=== PATIENT | male | born 1935 | race Caucasian/White ===

== ENCOUNTER 2016-06-11 10:13 | Emergency (ER) | payer MEDICARE ==
[~2016-06-11] VITALS: Ht 172.7 cm; Wt 92.0 kg
[~2016-06-11 10:13] MED LIST: DIOV80TA4 PO; DOXA1 PO; OMEP20TA PO; Z.0.CPM
[2016-06-11 10:16] VITALS: BP 124/67; PULSE 84; RESP 20; TEMP 98; O2SAT 96
[2016-06-11 10:33] VITALS: BP 104/65
[2016-06-11 10:35] VITALS: BP 105/64; PULSE 72; RESP 16; O2SAT 98
[2016-06-11] MEDS ORDERED: OMEP20TA PO (10:44)
[2016-06-11] MEDS ORDERED: METO25TA3 PO (10:44)
[2016-06-11] MEDS ORDERED: WARF-20 PO (10:44)
[2016-06-11] MEDS ORDERED: METH2.5T PO (10:44)
[2016-06-11] MEDS ORDERED: FOLI5CAP PO (10:44)
[2016-06-11] MEDS ORDERED: DOXA1TAB43 PO (10:44)
--- NOTE | 2016-06-11 10:50 | PD ---
HPI Chief Complaint: Abdominal Pain Time Seen by Provider: 10:33 Travel History International Travel<30 days: No Contact w/Intl Traveler<30days: No Traveled to known affect area: No History of Present Illness HPI This is an 80-year-old male who presents to the emergency department with a history of colon cancer status post colon resection in 2003 who presents the emergency department with left lower quadrant pain, moderate severity starting yesterday, radiating into the left testicle, constant, worse with movement, improved with rest. He denies any dysuria, hematuria or penile discharge. He' s not had nausea, vomiting, fevers or chills. He's never had pain like this before. PFSH Past Medical History Arthritis: Yes (RA) Atrial Fibrillation: Yes Cancer: Yes (COLON 2003 - TREATED WITH CHEMO & SURGICAL INTERVENTION ) Cardiovascular Problems: Yes (HX ATRIAL FIB) Diabetes: No Endocrine: No Gastrointestinal Disorders: Yes (BARRETTS ESOPHAGUS, COLON CANCER 2003, ACID REFLUX ) Genitourinary: Yes (BPH; TURP HX; INCOMPLETE BLADDER EMPTYING; URINARY INCONTINENCE) Hepatitis: No Hiatal Hernia: No Hypertension: Yes Immune Disorder: No Medical other: Yes (ARTHRITIS; BRUISES EASILY ) Musculoskeletal: Yes (LEFT KNEE REPLACE;RIGHT KNEE ARTHRITIS) Neurologic: Yes (NEUROPATHY BOTH HANDS POST CHEMO) Psychiatric: No Reproductive: No Respiratory: Yes (SLEEP APNEA USES CPAP @ HOME) Thyroid Disease: No Past Surgical History Abdominal Surgery: Yes (COLON RESECTION 2003 ) AICD: No Body Medical Devices: LEFT KNEE Cardiac Surgery: No Ear Surgery: Yes (MASTOID SX X 2 ) Endocrine Surgery: No Eye Surgery: No Genitourinary Surgery: Yes (TURP ) Joint Replacement: Yes (TOTAL LEFT KNEE) Oral Surgery: Yes (TONSILLECTOMY) Pacemaker: No Thoracic Surgery: No Other Surgery: Yes Social History Alcohol Use: Yes (SELDOM) Tobacco Use: No Substance Use: No Allergies-Medications (Allergen,Severity, Reaction): Coded Allergies: Aspirin (Verified Allergy, Severe, 06/11/16) Lomotil (Verified Adverse Reaction, Unknown, SEVERE DIARRHEA, 06/11/16) Uncoded Allergies: ANTI INFLAMMATORIES (Allergy, Unknown, 10/13/14) Reported Meds & Prescriptions Reported Meds & Active Scripts Active Reported Folic Acid Unknown Strength Cap Unknown Dose PO DAILY Warfarin 4 Mg Tab 8 Mg PO DAILY Metoprolol Tartrate 25 Mg Tab 12.5 Mg PO BID Methotrexate 2.5 Mg Tab 10 Mg PO Q7D Omeprazole 20 Mg Tab 20 Mg PO DAILY Doxazosin (Doxazosin Mesylate) 8 Mg Tab 8 Mg PO DAILY Review of Systems Except as stated in HPI: all other systems reviewed are Neg Physical Exam Narrative GENERAL:Well appearing, no acute distress SKIN: Warm and dry. HEAD: Atraumatic. Normocephalic. EYES: Pupils equal and round. No injection or drainage. ENT: Moist mucous membranes NECK: Trachea midline. CARDIOVASCULAR: Regular rate and rhythm. No murmur appreciated. RESPIRATORY: Clear to auscultation. Breath sounds equal bilaterally. GASTROINTESTINAL: Abdomen soft, tender to palpation in the left lower quadrant with no rebound or guarding. : Tender to palpation along the posterior aspect of the left testicle MUSCULOSKELETAL: No obvious deformities. NEUROLOGICAL: Awake and alert. No obvious cranial nerve deficits. Moving all extremities. PSYCHIATRIC: Appropriate mood and affect; insight and judgment normal. Data Data Last Documented VS Vital Signs Date Time Temp Pulse Resp B/P Pulse Ox O2 Delivery O2 Flow Rate FiO2 06/11/16 10:33 104/65 06/11/16 10:16 98.0 84 20 96 Room Air Orders Complete Blood Count With Diff (06/11/16 10:46) Comprehensive Metabolic Panel (06/11/16 10:46) Urinalysis - C+S If Indicated (06/11/16 10:46) Us Testicles W Doppler (06/11/16 ) Ct Abd/Pel W Iv Contrast(Rout) (06/11/16 ) Prothrombin Time / Inr (Pt) (06/11/16 10:56) Act Partial Throm Time (Ptt) (06/11/16 10:56) Urine Culture (06/11/16 12:41) Iohexol 350 Inj (Omnipaque 350 Inj) (06/11/16 13:21) Ciprofloxacin 400 Mg Premix (Cipro 400 M (06/11/16 14:00) Labs Laboratory Tests Test 06/11/16 06/11/16 10:56 12:41 White Blood Count 13.2 TH/MM3 Red Blood Count 4.12 MIL/MM3 Hemoglobin 11.2 GM/DL Hematocrit 34.6 % Mean Corpuscular Volume 83.8 FL Mean Corpuscular Hemoglobin 27.0 PG Mean Corpuscular Hemoglobin 32.3 % Concent Red Cell Distribution Width 16.9 % Platelet Count 202 TH/MM3 Mean Platelet Volume 8.9 FL Neutrophils (%) (Auto) 87.2 % Lymphocytes (%) (Auto) 6.1 % Monocytes (%) (Auto) 5.8 % Eosinophils (%) (Auto) 0.5 % Basophils (%) (Auto) 0.4 % Neutrophils # (Auto) 11.5 TH/MM3 Lymphocytes # (Auto) 0.8 TH/MM3 Monocytes # (Auto) 0.8 TH/MM3 Eosinophils # (Auto) 0.1 TH/MM3 Basophils # (Auto) 0.1 TH/MM3 CBC Comment DIFF FINAL Differential Comment Prothrombin Time 23.6 SEC Prothromb Time International 2.1 RATIO Ratio Activated Partial 40.7 SEC Thromboplast Time Sodium Level 138 MEQ/L Potassium Level 3.7 MEQ/L Chloride Level 103 MEQ/L Carbon Dioxide Level 27.9 MEQ/L Anion Gap 7 MEQ/L Blood Urea Nitrogen 11 MG/DL Creatinine 0.69 MG/DL Estimat Glomerular Filtration 110 ML/MIN Rate Random Glucose 118 MG/DL Calcium Level 7.8 MG/DL Total Bilirubin 1.3 MG/DL Aspartate Amino Transf 15 U/L (AST/SGOT) Alanine Aminotransferase 22 U/L (ALT/SGPT) Alkaline Phosphatase 61 U/L Total Protein 6.4 GM/DL Albumin 3.1 GM/DL Urine Color YELLOW Urine Turbidity CLOUDY Urine pH 6.0 Urine Specific [place] 1.019 Urine Protein 100 mg/dL Urine Glucose (UA) NEG mg/dL Urine Ketones NEG mg/dL Urine Occult Blood LARGE Urine Nitrite POS Urine Bilirubin NEG Urine Urobilinogen LESS THAN 2.0 MG/DL Urine Leukocyte Esterase LARGE Urine RBC /hpf Urine WBC /hpf Urine WBC Clumps RARE Urine Squamous Epithelial 1 /hpf Cells Urine Bacteria MANY /hpf Urine Mucus FEW /lpf Microscopic Urinalysis Comment CULTURE INDICATED MDM Medical Decision Making Medical Screen Exam Complete: Yes Emergency Medical Condition: Yes Interpretation(s) afebrile, no tachycardia, normotensive leukocytosis with left shift electrolytes within normal limits urinalysis: large amount of red blood cells and white blood cells Last 24 hours Impressions Scrotum Ultrasound 06/11/16 0000 Signed Impressions: Service Date/Time: Saturday, June 11, 2016 11:36 - CONCLUSION: 1. 5 x 3 x 2 cm heterogeneous extratesticular Mass in the left side of the scrotum. It may extend off of the body/tail of the epididymis. No inguinal hernia is seen on recent CT. Infection with masslike inflammatory change is also in the differential diagnosis. 2. Testicles within normal limits. Doc Marcano MD Abdomen/Pelvis CT 06/11/16 0000 Signed Impressions: Service Date/Time: Monday, June 11, 2016 13:02 - CONCLUSION: 1. Heterogeneous density/likely inflammatory change at the left side of the scrotum. No communication with the inguinal canal. No evidence of inguinal hernia. 2. Large midline anterior abdominal wall hernia containing a portion of the transverse colon. No evidence of bowel dilatation. 3. Moderate sized hiatal hernia. 4. Periportal edema in the liver. Doc Marcano MD Differential Diagnosis Urinary tract infection, epididymitis, epididymal orchitis, kidney stone, diverticulitis Narrative Course This is an 80-year-old male who presents to the emergency department with left lower quadrant and left groin pain. He is placed in a monitor and an IV was established. Labs are obtained which demonstrated a mild leukocytosis with left shift as well as a urinary tract infection. Ultrasound was obtained which demonstrates a 3 x 5 cm mass like area in the scrotum adjacent to the left testicle near the epididymis. CT abdomen and pelvis demonstrates an abdominal wall hernia. I reexamined the patient and I could palpate his hernia was completely nontender and I don't think it's the etiology of his symptoms. I think his symptoms are related to acute epididymitis and inflammatory changes. Patient was given a dose of IV ciprofloxacin and was instructed to follow-up with the urologist as soon as possible. Diagnosis Primary Impression: Epididymitis with abscess Patient Instructions: General Instructions Additional Instructions: If you develop severe or worsening abdominal pain, fever>100.4, persistent vomiting or inability to eat or drink return to the emergency department immediately. Follow-up with the urologist as soon as possible. Med/Other Pt SpecificInfo: Prescription(s) given Scripts Ciprofloxacin 500 Mg Uos218 Mg PO BID 10 Days Prov:Caryn Anderson MD 06/11/16 Disposition: 01 DISCHARGE HOME Condition: Stable Caryn Anderson MD Jun 11, 2016 10:50
[2016-06-11 11:24] LABS: AUTOMATED NEUTROPHIL # 11.5 TH/MM3 (1.8-7.7); BASOPHIL # 0.1 TH/MM3 (0-0.2); BASOPHIL % 0.4 % (0.0-2.0); EOSINOPHIL # 0.1 TH/MM3 (0-0.4); EOSINOPHIL % 0.5 % (0.0-4.0); HEMATOCRIT 34.6 % (39.0-51.0); HEMO FLAGS DIFF FINAL; LYMPH % 6.1 % (9.0-44.0); LYMPHOCYTE # 0.8 TH/MM3 (1.0-4.8); MEAN CELL VOLUME 83.8 FL (80.0-100.0); MEAN CORPUSCULAR HGB CONC 32.3 % (32.0-36.0); MONO % 5.8 % (0.0-8.0); NEUT % 87.2 % (16.0-70.0); PLATELET COUNT 202 TH/MM3 (150-450); RED BLOOD COUNT 4.12 MIL/MM3 (4.50-5.90); RED CELL DISTRIBUTION WIDTH 16.9 % (11.6-17.2); WHITE BLOOD COUNT 13.2 TH/MM3 (4.0-11.0)
[2016-06-11 11:30] VITALS: BP 109/73; PULSE 76; RESP 18; O2SAT 97
[2016-06-11 11:36] LABS: APTT (PATIENT) 40.7 SEC (24.3-30.1); INTERNATIONAL NORMALIZED RATIO 2.1 RATIO; PROTHROMBIN TIME - PATIENT 23.6 SEC (9.8-11.6)
[2016-06-11 11:38] LABS: ANION GAP 7 MEQ/L (5-15); AST (GOT) 15 U/L (15-37); BICARBONATE 27.9 MEQ/L (21.0-32.0); BLOOD UREA NITROGEN 11 MG/DL (7-18); CHLORIDE 103 MEQ/L (98-107); GLOMERULAR FILTRATION RATE 110 ML/MIN (>89); POTASSIUM 3.7 MEQ/L (3.5-5.1); SODIUM (NA) 138 MEQ/L (136-145)
[2016-06-11 11:41] LABS: ALKALINE PHOSPHATASE 61 U/L (45-117); ALT (GPT) 22 U/L (12-78); TOTAL BILIRUBIN ADULT 1.3 MG/DL (0.2-1.0)
[2016-06-11 12:30] VITALS: BP 110/78; PULSE 76; RESP 16; O2SAT 97
[2016-06-11 13:07] LABS: BACTERIA, URINE MANY /hpf; BLOOD, URINE LARGE (NEG); COMMENT (UR) CULTURE INDICATED; CULTURE IF INDICATED CULTURE INDICATED; GLUCOSE,URINE NEG (NEG); KETONE, URINE NEG (NEG); MUCUS URINE FEW /lpf (OCC); SQUAMOUS EPITHELIAL CELL URINE 1 /hpf (0-5); URINE COLOR YELLOW (YELLW/STRAW)
[2016-06-11 13:09] LABS: NITRITE,URINE POS (NEG)
[2016-06-11] MEDS ORDERED: IOHEXOL 350 MG/ML 10 ML VIAL (for RAD DIAG) IV ONE (13:21)
--- NOTE | 2016-06-11 13:28 | RADRPT ---
EXAM DATE/TIME: 06/11/2016 11:36 [facility] COMPARISON: CT ABDOMEN & PELVIS W CONTRAST, June 11, 2016, 13:02. INDICATIONS : Left testicular pain. MEDICAL HISTORY : Carcinoma, colon. Rheumatoid arthritis. BPH. Melgar's esophagus. gerd. htn. sleep apnea. afib. neuro daniel, hands. SURGICAL HISTORY : Tonsillectomy. Total knee replacement, left.TURP. Mastoid surgery. Chemotherapy. ENCOUNTER: Initial ACUITY: 2 days PAIN SCORE: 4/10 LOCATION: Bilateral scrotum. MEASUREMENTS: RIGHT TESTICLE: 2.3 x 2.7 x 1.6cm LEFT TESTICLE: 2.3 x 2.5 x 1.6cm FINDINGS: RIGHT TESTICLE: Testicle is homogeneous and within normal limits. Moderate-sized hydrocele. Epididymis is mildly hete rogeneous with several small cysts seen in the epididymal head. LEFT TESTICLE: Testicle is homogeneous and within normal limits. Moderate-sized hydrocele. 4.9 x 2.9 x 2.4 cm hetero geneous mixed echogenicity hypervascular extratesticular mass identified. The area is hypervascular. Several small cysts are seen in the epididymis. SCROTUM: Within normal limits. CONCLUSION: 1. 5 x 3 x 2 cm heterogeneous extratesticular Mass in the left side of the scrotum. It may extend off of the body/tail of the epididymis. No inguinal hernia is seen on recent CT. Infection with masslike inflammatory change is also in the differential diagnosis. 2. Testicles within normal limits. Doc Marcano MD on June 11, 2016 at 13:19 Board Certified Radiologist. This report was verified electronically.
[2016-06-11] MEDS ORDERED: CIPROFLOXACIN 400 MG PREMIX 200 ML IV ONE (14:00)
--- NOTE | 2016-06-11 14:24 | RADRPT ---
EXAM DATE/TIME: 06/11/2016 13:02 [facility] COMPARISON: No previous studies available for comparison. INDICATIONS : Lower left abdomen pain. IV CONTRAST: 80 cc Omnipaque 350 (iohexol) IV ORAL CONTRAST: No oral contrast ingested. RADIATION DOSE: 16.02 CTDIvol (mGy) MEDICAL HISTORY : Cardiovascular disease. Gastroesophageal reflux disease. Carcinoma, colon. SURGICAL HISTORY : Colon resection. ENCOUNTER: Initial ACUITY: 1 day PAIN SCALE: 5/10 LOCATION: Left Abdomen TECHNIQUE: Volumetric scanning of the abdomen and pelvis was performed. Using automated exposure control and ad justment of the mA and/or kV according to patient size, radiation dose was kept as low as reasonably achievable to obtain optimal diagnostic quality images. FINDINGS: LOWER LUNGS: Coronary artery calcification. Mild bilateral lower lobe atelectasis. Moderate-sized hiatal hernia. LIVER: Periportal edema noted. Mild ill-defined fluid density about the sandra hepatis.Homogeneous density wi thout lesion. There is no dilation of the biliary tree. No calcified gallstones. SPLEEN: Normal size without lesion. PANCREAS: Within normal limits. KIDNEYS: 2 mm nonobstructing calculus in the anterior midpole of the right kidney. 3 mm nonobstructing calculu s in the posterior midpole of the left kidney. Bilateral fluid density mass is indicating cysts with the largest extending off of the right lower pole measuring 6.5 cm. No evidence of hydronephrosis. ADRENAL GLANDS: Within normal limits. VASCULAR: Aortic diameter are within normal limits. BOWEL/MESENTERY: Prominent hiatal hernia. No evidence of bowel dilatation. Appendix not identified. ABDOMINAL WALL: There is a large midline anterior abdominal wall hernia containing a segment of the transverse colon. The hernia measures 15.8 cm in medial to lateral dimension. The neck measures 4.7 cm. Mild hazy/stra nding opacity in the hernia. No associated bowel dilatation or bowel wall thickening. RETROPERITONEUM: There is no lymphadenopathy. BLADDER: No wall thickening or mass. REPRODUCTIVE: Within normal limits. INGUINAL: No evidence of inguinal hernia. There is evidence of edema/heterogeneous density in the inferior left side of the scrotum. MUSCULOSKELETAL: Prominent degenerative findings of the lumbar spine. CONCLUSION: 1. Heterogeneous density/likely inflammatory change at the left side of the scrotum. No communication with the inguinal canal. No evidence of inguinal hernia. 2. Large midline anterior abdominal wall hernia containing a portion of the transverse colon. No evid ence of bowel dilatation. 3. Moderate sized hiatal hernia. 4. Periportal edema in the liver. Doc Marcano MD on June 11, 2016 at 14:14 Board Certified Radiologist. This report was verified electronically.
[2016-06-11 14:30] VITALS: BP 122/79; PULSE 88; RESP 16; O2SAT 96
[2016-06-11] MEDS ORDERED: CIPR500T2 PO (14:41)
== END 2016-06-11 15:00 | disposition home or self-care (01) ==
LOC: NEPC 10:13
DX: N45.1 Epididymitis (principal); N49.2 Inflammatory disorders of scrotum; N39.0 Urinary tract infection, site not specified; B96.20 Unspecified Escherichia coli [E. coli] as the cause of diseases classified elsewhere; K43.9 Ventral hernia without obstruction or gangrene; I10 Essential (primary) hypertension; G47.30 Sleep apnea, unspecified; Z87.39 Personal history of other diseases of the musculoskeletal system and connective tissue; Z86.79 Personal history of other diseases of the circulatory system; Z85.038 Personal history of other malignant neoplasm of large intestine; Z87.19 Personal history of other diseases of the digestive system; Z87.448 Personal history of other diseases of urinary system; Z86.69 Personal history of other diseases of the nervous system and sense organs
CPT/HCPCS: 74177; 76870; 80053; 81001; 85025; 85610; 85730; 87077; 87086; 87186; 93975; 96365; 99284; J0744; Q9967

== ENCOUNTER 2017-05-28 06:38 | Inpatient (IN) | payer MEDICARE ==
[2017-05-28] VITALS (19 sets, daily range): BP systolic 88–130; BP diastolic 53–78; PULSE 80–116; RESP 16–24; TEMP 97.5–98.6; O2SAT 94–97
[~2017-05-28] VITALS: Ht 172.7 cm; Wt 98.3 kg
[~2017-05-28 06:38] MED LIST changes: +CIPR500T2 PO; -DIOV80TA4 PO; -DOXA1 PO; +DOXA1TAB43 PO; +FOLI5CAP PO; +METH2.5T PO; +METO25TA3 PO; -OMEP20TA PO; +OMEP20TA93 PO; +WARF-20 PO; -Z.0.CPM
[2017-05-28] MEDS ORDERED: SODIUM CHLOR 0.9% 1000 ML INJ 1,000 ML IV SCH ×2 (07:04→10:00)
--- NOTE | 2017-05-28 07:12 | PD ---
HPI Chief Complaint: General Weakness Time Seen by Provider: 06:57 Travel History International Travel<30 days: No Contact w/Intl Traveler<30days: No Traveled to known affect area: No History of Present Illness HPI The patient is a 81-year-old male who presents to the emergency department for multiple complaints. The patient states he developed symptoms on of dizziness which she describes as the room spinning, intermittent headaches, and nausea without vomiting. He also complains of epigastric abdominal discomfort which she attributes to his reflux. He does have a history of GERD, was on Prilosec a one time, but currently takes no medications for reflux. He also complains of body aches, low back pain, but denies any fever. The patient denies any chest pain, does complain of mild shortness of breath. He did receive an influenza vaccination this year. He does have remote history of colon cancer with partial colectomy. Last bowel movement was yesterday. He does have a history of lower abdominal hernia but denies any history of bowel obstruction. He recently had his left testicle removed 3 weeks ago and is awaiting results for possible cancer. He did undergo chemotherapy for colon cancer but denies any radiation therapy. The patient's symptoms are moderate, there are no current alleviating or exacerbating factors. PFSH Past Medical History Arthritis: Yes (RA) Atrial Fibrillation: Yes Cancer: Yes (COLON 2004 - TREATED WITH CHEMO & SURGICAL INTERVENTION ) Cardiovascular Problems: Yes (HX ATRIAL FIB) Diabetes: No Endocrine: No Gastrointestinal Disorders: Yes (BARRETTS ESOPHAGUS, COLON CANCER 2003, ACID REFLUX ) Genitourinary: Yes (BPH; TURP HX; INCOMPLETE BLADDER EMPTYING; URINARY INCONTINENCE) Hepatitis: No Hiatal Hernia: No Hypertension: Yes Immune Disorder: No Medical other: Yes (ARTHRITIS; BRUISES EASILY ) Musculoskeletal: Yes (LEFT KNEE REPLACE;RIGHT KNEE ARTHRITIS) Neurologic: Yes (NEUROPATHY BOTH HANDS POST CHEMO) Psychiatric: No Reproductive: No Respiratory: Yes (SLEEP APNEA USES CPAP @ HOME) Thyroid Disease: No Tetanus Vaccination: < 5 Years Influenza Vaccination: No Past Surgical History Surgical History: No Previous Surgery Abdominal Surgery: Yes (COLON RESECTION 2003 ) AICD: No Body Medical Devices: LEFT KNEE Cardiac Surgery: No Ear Surgery: Yes (MASTOID SX X 2 ) Endocrine Surgery: No Eye Surgery: No Genitourinary Surgery: Yes (TURP ) Joint Replacement: Yes (TOTAL LEFT KNEE) Oral Surgery: Yes (TONSILLECTOMY) Pacemaker: No Thoracic Surgery: No Other Surgery: Yes Social History Alcohol Use: Yes (SELDOM) Tobacco Use: No Substance Use: No Allergies-Medications (Allergen,Severity, Reaction): Coded Allergies: aspirin (Unverified Allergy, Severe, 05/28/17) atropine (Unverified Adverse Reaction, Unknown, SEVERE DIARRHEA, 05/28/17) diphenoxylate (Unverified Adverse Reaction, Unknown, SEVERE DIARRHEA, 05/28) Uncoded Allergies: ANTI INFLAMMATORIES (Allergy, Unknown, 10/13/14) Reported Meds & Prescriptions Reported Meds & Active Scripts Active Reported Folic Acid 1 Mg Tablet 1 Tab PO DAILY Warfarin 4 Mg Tab 8 Mg PO DAILY Metoprolol Tartrate 25 Mg Tab 12.5 Mg PO BID Methotrexate 2.5 Mg Tab 10 Mg PO Q7D Doxazosin (Doxazosin Mesylate) 8 Mg Tab 8 Mg PO DAILY Review of Systems Except as stated in HPI: all other systems reviewed are Neg General / Constitutional: No: Fever HENT: Positive: Headaches, Vertigo, No: Lightheadedness Cardiovascular: No: Chest Pain or Discomfort Respiratory: Positive: Shortness of Breath, No: Cough Gastrointestinal: Positive: Nausea, Abdominal Pain, Indigestion, No: Vomiting, Diarrhea, Constipation Genitourinary: No: Dysuria Musculoskeletal: Positive: Myalgias Neurologic: Positive: Weakness, Dizziness, Headache Physical Exam Narrative GENERAL: Awake, alert, pleasant 81-year-old male who appears his stated age and is in no acute respiratory distress. SKIN: Focused skin assessment warm/dry. HEAD: Atraumatic. Normocephalic. EYES: Pupils equal and round. No scleral icterus. No injection or drainage. ENT: No nasal bleeding or discharge. Mucous membranes pink and moist. Poor dentition. NECK: Trachea midline. No JVD. CARDIOVASCULAR: Irregularly irregular. RESPIRATORY: No accessory muscle use. Clear to auscultation. Breath sounds equal bilaterally. GASTROINTESTINAL: Abdomen mild epigastric tenderness. Palpable hernia inferior to the umbilicus left lower quadrant, unable to reduce. MUSCULOSKELETAL: No obvious deformities. No clubbing. No cyanosis. No edema. NEUROLOGICAL: Awake and alert. No obvious cranial nerve deficits. Motor grossly within normal limits. Normal speech. PSYCHIATRIC: Appropriate mood and affect; insight and judgment normal. Data Data Last Documented VS Vital Signs Date Time Temp Pulse Resp B/P (MAP) Pulse Ox O2 Delivery O2 Flow Rate FiO2 05/28/17 07:20 104 20 130/73 (92) 96 Room Air 05/28/17 06:42 97.5 Orders Orders Complete Blood Count With Diff (05/28/17 07:04) Comprehensive Metabolic Panel (05/28/17 07:04) Lipase (05/28/17 07:04) Lactic Acid (05/28/17 07:04) Prothrombin Time / Inr (Pt) (05/28/17 07:04) Act Partial Throm Time (Ptt) (05/28/17 07:04) Urinalysis - C+S If Indicated (05/28/17 07:04) Ct Abd/Pel W/O Iv Contrast (05/28/17 07:04) Iv Access Insert/Monitor (05/28/17 07:04) Ecg Monitoring (05/28/17 07:04) Oximetry (05/28/17 07:04) Morphine Inj (Morphine Inj) (05/28/17 07:15) Ondansetron Inj (Zofran Inj) (05/28/17 07:15) Sodium Chlor 0.9% 1000 Ml Inj (Ns 1000 M (05/28/17 07:04) Sodium Chloride 0.9% Flush (Ns Flush) (05/28/17 07:15) Electrocardiogram (05/28/17 07:04) Chest, Single Ap (05/28/17 07:04) Famotidine Inj (Pepcid Inj) (05/28/17 07:15) Al-Mag Hy-Si 40-40-4 Mg/Ml Liq (Mag-Al P (05/28/17 07:15) Lidocaine 2% Viscous (Xylocaine 2% Visco (05/28/17 07:15) Ct Brain W/O Iv Contrast(Rout) (05/28/17 ) Electrocardiogram (05/28/17 ) Troponin I (05/28/17 07:12) Creatine Kinase (Cpk) (05/28/17 07:12) Sodium Chlorid 0.9% 500 Ml Inj (Ns 500 M (05/28/17 07:30) Piperacil-Tazo 4.5 Gm Premix (Zosyn 4.5 (05/28/17 08:00) Type And Screen (05/28/17 07:55) Yuval-Gastric Tube Insert/Mon (05/28/17 07:59) NPO (05/28/17 07:59) Insert Ng Tube (05/28/17 08:05) Blood Product Administration (05/28/17 08:20) Phytonadione Inj (Vitamin K Inj) (05/28/17 08:30) Consult Colorectal Surgery (05/28/17 ) (Hub Use Only)Inp Phy Cons/Ref (05/28/17 ) Prothrombin Time / Inr (Pt) (05/28/17 08:37) Admit Order (Ed Use Only) (05/28/17 08:39) Labs Laboratory Tests Test 05/28/17 07:15 05/28/17 07:30 White Blood Count 17.7 TH/MM3 Red Blood Count 4.95 MIL/MM3 Hemoglobin 15.3 GM/DL Hematocrit 44.8 % Mean Corpuscular Volume 90.4 FL Mean Corpuscular Hemoglobin 30.9 PG Mean Corpuscular Hemoglobin Concent 34.1 % Red Cell Distribution Width 14.7 % Platelet Count 364 TH/MM3 Mean Platelet Volume 8.3 FL Neutrophils (%) (Auto) 92.6 % Lymphocytes (%) (Auto) 3.4 % Monocytes (%) (Auto) 3.8 % Eosinophils (%) (Auto) 0.0 % Basophils (%) (Auto) 0.2 % Neutrophils # (Auto) 16.4 TH/MM3 Lymphocytes # (Auto) 0.6 TH/MM3 Monocytes # (Auto) 0.7 TH/MM3 Eosinophils # (Auto) 0.0 TH/MM3 Basophils # (Auto) 0.0 TH/MM3 CBC Comment DIFF FINAL Differential Comment Blood Urea Nitrogen 40 MG/DL Creatinine 1.26 MG/DL Random Glucose 155 MG/DL Total Protein 7.8 GM/DL Albumin 3.5 GM/DL Calcium Level 8.7 MG/DL Alkaline Phosphatase 73 U/L Aspartate Amino Transf (AST/SGOT) 23 U/L Alanine Aminotransferase (ALT/SGPT) 20 U/L Total Bilirubin 1.2 MG/DL Sodium Level 131 MEQ/L Potassium Level 4.1 MEQ/L Chloride Level 94 MEQ/L Carbon Dioxide Level 26.4 MEQ/L Anion Gap 11 MEQ/L Estimat Glomerular Filtration Rate 55 ML/MIN Lactic Acid Level 2.8 mmol/L Total Creatine Kinase 94 U/L Troponin I LESS THAN 0.02 NG/ML Lipase 222 U/L Prothrombin Time 54.7 SEC Prothromb Time International Ratio 5.5 RATIO Activated Partial Thromboplast Time 45.7 SEC MDM Medical Decision Making Medical Screen Exam Complete: Yes Emergency Medical Condition: Yes Medical Record Reviewed: Yes Interpretation(s) Last Impressions Chest X-Ray 05/28/17 0704 Signed Impressions: Service Date/Time: Sunday, May 28, 2017 07:23 - CONCLUSION: No acute disease. The enlargement of cardiac silhouette may be secondary to portable technique. Tsering Poole MD Abdomen/Pelvis CT 05/28/17 0704 Signed Impressions: Service Date/Time: Sunday, May 28, 2017 07:25 - CONCLUSION: There is a small bowel obstruction secondary to an area of small bowel herniation through an anterior midline abdominal wall defect. Portions of the herniated small bowel are decompressed with abnormal brain of the adjacent fat and appearance of volvulus. Findings are highly concerning for strangulation. There is severe dilation of the stomach with fluid identified within the esophagus and abnormalities identified within the bilateral lower lobes concerning for aspiration.. Tsering Poole MD Head CT 05/28/17 0000 Signed Impressions: Service Date/Time: Sunday, May 28, 2017 07:23 - CONCLUSION: Normal examination for a patient of this age. Tsering Poole MD Laboratory Tests Test 05/28/17 07:15 05/28/17 07:30 White Blood Count 17.7 TH/MM3 Red Blood Count 4.95 MIL/MM3 Hemoglobin 15.3 GM/DL Hematocrit 44.8 % Mean Corpuscular Volume 90.4 FL Mean Corpuscular Hemoglobin 30.9 PG Mean Corpuscular Hemoglobin Concent 34.1 % Red Cell Distribution Width 14.7 % Platelet Count 364 TH/MM3 Mean Platelet Volume 8.3 FL Neutrophils (%) (Auto) 92.6 % Lymphocytes (%) (Auto) 3.4 % Monocytes (%) (Auto) 3.8 % Eosinophils (%) (Auto) 0.0 % Basophils (%) (Auto) 0.2 % Neutrophils # (Auto) 16.4 TH/MM3 Lymphocytes # (Auto) 0.6 TH/MM3 Monocytes # (Auto) 0.7 TH/MM3 Eosinophils # (Auto) 0.0 TH/MM3 Basophils # (Auto) 0.0 TH/MM3 CBC Comment DIFF FINAL Differential Comment Blood Urea Nitrogen 40 MG/DL Creatinine 1.26 MG/DL Random Glucose 155 MG/DL Total Protein 7.8 GM/DL Albumin 3.5 GM/DL Calcium Level 8.7 MG/DL Alkaline Phosphatase 73 U/L Aspartate Amino Transf (AST/SGOT) 23 U/L Alanine Aminotransferase (ALT/SGPT) 20 U/L Total Bilirubin 1.2 MG/DL Sodium Level 131 MEQ/L Potassium Level 4.1 MEQ/L Chloride Level 94 MEQ/L Carbon Dioxide Level 26.4 MEQ/L Anion Gap 11 MEQ/L Estimat Glomerular Filtration Rate 55 ML/MIN Lactic Acid Level 2.8 mmol/L Total Creatine Kinase 94 U/L Troponin I LESS THAN 0.02 NG/ML Lipase 222 U/L Prothrombin Time 54.7 SEC Prothromb Time International Ratio 5.5 RATIO Activated Partial Thromboplast Time 45.7 SEC Differential Diagnosis Differential diagnosis includes GERD, pancreatitis, partial small bowel obstruction, incarcerated hernia, subdural hemorrhage, influenza, acute kidney injury, dehydration, pneumonia, UTI. Narrative Course IV was established, labs are drawn and sent, and the patient was placed on cardiac telemetry monitoring and continuous pulse oximetry monitoring. EKG was ordered and interpreted. The patient was administered morphine, Zofran, GI cocktail, Pepcid, and IV fluids. CT of the brain and abdomen/pelvis were obtained. Chest x-ray was obtained. Chest x-rays unremarkable. CT the abdomen and pelvis reveals strangulated hernia and bilateral lower lobe infiltrates, concerning for aspiration pneumonia. The patient does have a palpable hernia in the left lower quadrant, unable to reduce. White count is elevated 17.7, lactic acid is elevated at 2.8. The patient was administered Zosyn. The patient has been seen by Dr. Mulligan who performed his previous surgery, therefore, a call was placed to Dr. Mulligan. I discussed the findings with Dr. Mulligan at 7:58 AM who will review the CT and evaluate the patient. The patient will be kept nothing by mouth. NG tube was ordered. I discussed the findings with the patient and family at bedside. The patient's INR is elevated at 5.5. The patient was evaluated by Dr. Mulligan, vitamin K and FFP were ordered by Dr. Mulligan. The patient had NG tube placed, had 3000 cc output. The patient has elevated lactic acid, elevated white count, and will require intensive surgical care unit after surgery. Therefore, patient will be placed in the intensive surgical care unit. I discussed the patient Dr. Jimenez who agrees with admission. The patient does have A. fib, may have underlying cardiomyopathy, and will require large doses of IV fluids and FFP, he has an increased risk of flash pulmonary edema, will need intensive care monitoring. Critical Care Narrative Aggregate critical care time was 35 minutes. Time to perform other separately billable procedures was not included in the critical care time. My time did not include minutes spent treating any other patients simultaneously or on activities that did not directly contribute to the patient's treatment. The services I provided to this patient were to treat and/or prevent clinically significant deterioration that could result in: Aspiration, distention, ischemia , sepsis, . I provided critical care services requiring my management, as noted below: Chart data review, documentation time, medication orders and management, vital sign assessments/reviewing monitor data, ordering and reviewing lab tests, ordering and interpreting/reviewing x-rays and diagnostic studies, care of the patient and discussion of the patient with the admitting physicians. Sepsis Criteria SIRS Criteria (2 or more): Heart rate over 90, WBC > 59402, < 4000 or > 10% bands Criteria Outcome: Meets SIRS criteria Physician Communication Physician Communication I discussed the patient with the colorectal surgeon, Dr. Mulligan. I discussed the patient with the design draftsman, Dr. Jimenez. Diagnosis Primary Impression: Hernia with strangulation Additional Impressions: SIRS (systemic inflammatory response syndrome) Lactic acidosis Leukocytosis Qualified Codes: D72.829 - Elevated white blood cell count, unspecified Admitting Information Admitting Physician Requests: Admit Condition: Serious Conrado Hooker MD May 28, 2017 07:12
[2017-05-28] MEDS ORDERED: MORPHINE SULFATE 4 MG/ML INJ IV PUSH ONE (07:15)
[2017-05-28] MEDS ORDERED: ONDANSETRON HCL 4 MG/2 ML VIAL IVP ONE (07:15)
[2017-05-28] MEDS ORDERED: FAMOTIDINE 20 MG/2 ML VIAL IV PUSH ONE (07:15)
[2017-05-28] MEDS ORDERED: LIDOCAINE VISCOUS 2% SOLN 15 ML UDC PO ONE (07:15)
[2017-05-28] MEDS ORDERED: SODIUM CHLORIDE 0.9% FLUSH 10 ML FLUSH IV FLUSH PRN ×2 (07:15→09:30)
[2017-05-28] MEDS ORDERED: ALUMINUM/MAGNESIUM/SIMETH 30 ML CUP PO ONE (07:15)
[2017-05-28] MEDS ORDERED: SODIUM CHLORID 0.9% 500 ML INJ 500 ML IV ONE (07:30)
--- NOTE | 2017-05-28 07:31 | RADRPT ---
EXAM DATE/TIME: 05/28/2017 07:23 [facility] COMPARISON: No previous studies available for comparison. INDICATIONS : Short of Breath MEDICAL HISTORY : Cardiovascular disease. Gastroesophageal reflux disease. Carcinoma, colon. SURGICAL HISTORY : Colon resection. ENCOUNTER: Initial ACUITY: 1 day PAIN SCORE: 0/10 LOCATION: chest FINDINGS: A single view of the chest demonstrates the lungs to be symmetrically aerated without evidence of mas s, infiltrate or effusion. The heart size appears mildly enlarged. Pulmonary vasculature is normal in caliber.. Osseous structures are intact. CONCLUSION: No acute disease. The enlargement of cardiac silhouette may be secondary to portable technique. Tsering Poole MD on May 28, 2017 at 7:28 Board Certified Radiologist. This report was verified electronically.
--- NOTE | 2017-05-28 07:32 | RADRPT ---
EXAM DATE/TIME: 05/28/2017 07:23 [facility] COMPARISON: No previous studies available for comparison. INDICATIONS : Dizziness today. RADIATION DOSE: 56.35 CTDIvol (mGy) MEDICAL HISTORY : Carcinoma, colon. SURGICAL HISTORY : Colon resection. ENCOUNTER: Initial ACUITY: 1 day PAIN SCALE: 0/10 LOCATION: Bilateral head TECHNIQUE: Multiple contiguous axial images were obtained of the head. Using automated exposure control and adj ustment of the mA and/or kV according to patient size, radiation dose was kept as low as reasonably a chievable to obtain optimal diagnostic quality images. DICOM format image data is available electro nically for review and comparison. FINDINGS: CEREBRUM: The ventricles are normal for age. No evidence of midline shift, mass lesion, hemorrhage or acute in farction. No extra-axial fluid collections are seen. POSTERIOR FOSSA: The cerebellum and brainstem are intact. The 4th ventricle is midline. The cerebellopontine angle i s unremarkable. EXTRACRANIAL: The visualized portion of the orbits is intact. SKULL: The calvaria is intact. No evidence of skull fracture. CONCLUSION: Normal examination for a patient of this age. Tsering Poole MD on May 28, 2017 at 7:29 Board Certified Radiologist. This report was verified electronically.
[2017-05-28 07:34] LABS: AUTOMATED NEUTROPHIL # 16.4 TH/MM3 (1.8-7.7); BASOPHIL % 0.2 % (0.0-2.0); HEMATOCRIT 44.8 % (39.0-51.0); HEMOGLOBIN 15.3 GM/DL (13.0-17.0); LYMPH % 3.4 % (9.0-44.0); LYMPHOCYTE # 0.6 TH/MM3 (1.0-4.8); MEAN CELL VOLUME 90.4 FL (80.0-100.0); MEAN CORPUSCULAR HEMOGLOBIN 30.9 PG (27.0-34.0); MEAN CORPUSCULAR HGB CONC 34.1 % (32.0-36.0); MEAN PLATELET VOLUME 8.3 FL (7.0-11.0); MONO % 3.8 % (0.0-8.0); MONOCYTE # 0.7 TH/MM3 (0-0.9); NEUT % 92.6 % (16.0-70.0); PLATELET COUNT 364 TH/MM3 (150-450); RED BLOOD COUNT 4.95 MIL/MM3 (4.50-5.90); RED CELL DISTRIBUTION WIDTH 14.7 % (11.6-17.2); WHITE BLOOD COUNT 17.7 TH/MM3 (4.0-11.0)
--- NOTE | 2017-05-28 07:43 | RADRPT ---
EXAM DATE/TIME: 05/28/2017 07:25 [facility] COMPARISON: No previous studies available for comparison. INDICATIONS : Diffuse abdomen pain today. ORAL CONTRAST: No oral contrast ingested. RADIATION DOSE: 12.02 CTDIvol (mGy) MEDICAL HISTORY : Carcinoma, colon. SURGICAL HISTORY : Colon resection. trans urethral resection of prostate ENCOUNTER: Initial ACUITY: 1 day PAIN SCALE: 7/10 LOCATION: Bilateral abdomen TECHNIQUE: Volumetric scanning of the abdomen and pelvis was performed. Using automated exposure control and ad justment of the mA and/or kV according to patient size, radiation dose was kept as low as reasonably achievable to obtain optimal diagnostic quality images. DICOM format image data is available electro nically for review and comparison. FINDINGS: LOWER LUNGS: There is airspace consolidation involving the right lower lobe and groundglass opacity identified in the left lower lobe. There is a fluid-filled esophagus secondary to small bowel obstruction and sever e distention of the stomach. Findings are concerning for aspiration pneumonia. LIVER: Homogeneous density without lesion. There is no dilation of the biliary tree. No calcified gallston es. SPLEEN: Normal size without lesion. PANCREAS: Within normal limits. KIDNEYS: Bilateral well circumscribed benign renal cysts. No evidence of stones, hydronephrosis or concerning mass. ADRENAL GLANDS: Within normal limits. VASCULAR: Extensive atherosclerosis. No evidence of aneurysm. BOWEL/MESENTERY: There is severe dilation of the stomach and dilated small bowel to the level of a herniation through the midline rectus muscle with small bowel loops identified within the anterior soft tissues. The her niated small bowel loops demonstrate an area of apparent volvulus with decompression of the herniated loops of small bowel with grade of the adjacent fat concerning for strangulation. ABDOMINAL WALL: There is an area of dehiscent of the anterior rectus at the level of the pelvis with the area of elmer iation measuring approximately 2.7 cm. RETROPERITONEUM: There is no lymphadenopathy. BLADDER: No wall thickening or mass. REPRODUCTIVE: Surgically absent. INGUINAL: There is no lymphadenopathy or hernia. MUSCULOSKELETAL: Degenerative changes. CONCLUSION: There is a small bowel obstruction secondary to an area of small bowel herniation through an anterior midline abdominal wall defect. Portions of the herniated small bowel are decompressed with abnormal brain of the adjacent fat and appearance of volvulus. Findings are highly concerning for strangulatio n. There is severe dilation of the stomach with fluid identified within the esophagus and abnormaliti es identified within the bilateral lower lobes concerning for aspiration.. Tsering Poole MD on May 28, 2017 at 7:34 Board Certified Radiologist. This report was verified electronically.
[2017-05-28] MEDS ORDERED: FOLI1TAB6 PO (07:44)
[2017-05-28] MEDS ORDERED: WARF-20 PO (07:44)
[2017-05-28 07:54] LABS: ALBUMIN 3.5 GM/DL (3.4-5.0); ALT (GPT) 20 U/L (12-78); AST (GOT) 23 U/L (15-37); BICARBONATE 26.4 MEQ/L (21.0-32.0); BLOOD UREA NITROGEN 40 MG/DL (7-18); CALCIUM 8.7 MG/DL (8.5-10.1); CHLORIDE 94 MEQ/L (98-107); CREATININE 1.26 MG/DL (0.60-1.30); GLOMERULAR FILTRATION RATE 55 ML/MIN (>89); GLUCOSE,RANDOM 155 MG/DL (74-106); SODIUM (NA) 131 MEQ/L (136-145)
[2017-05-28 07:55] LABS: ALKALINE PHOSPHATASE 73 U/L (45-117); TOTAL BILIRUBIN ADULT 1.2 MG/DL (0.2-1.0); TOTAL PROTEIN 7.8 GM/DL (6.4-8.2); TROPONIN I LESS THAN 0.02 NG/ML (0.02-0.05)
[2017-05-28] MEDS ORDERED: PIPERACIL-TAZO 4.5 GM PREMIX 100 ML IV ONE (08:00)
[2017-05-28 08:14] LABS: INTERNATIONAL NORMALIZED RATIO 5.5 RATIO; PROTHROMBIN TIME - PATIENT 54.7 SEC (9.8-11.6)
[2017-05-28] MEDS ORDERED: PHYTONADIONE 10 MG/ML VIAL SQ ONE (08:30)
[2017-05-28 09:21] LABS: BACTERIA, URINE FEW /hpf; BILIRUBIN, URINE NEG (NEG); BLOOD, URINE TRACE (NEG); GLUCOSE,URINE NEG (NEG); HYALINE CAST, URINE 10 /lpf (RARE); KETONE, URINE NEG (NEG); MUCUS URINE FEW /lpf (OCC); NITRITE,URINE NEG (NEG); PH, URINE 5.5 (5.0-8.5); SQUAMOUS EPITHELIAL CELL URINE <1 /hpf (0-5); URINE COLOR YELLOW (YELLW/STRAW); URINE LEUKOCYTE ESTERASE LARGE (NEG); WHITE BLOOD CELL CLUMPS MANY
[2017-05-28] MEDS ORDERED: CHLORHEXIDINE GLUCONATE 2 % 1 PACK (2 CLOTHS) TOP PRN ×2 (09:30→10:30)
[2017-05-28] MEDS ORDERED: PIPERACIL-TAZO 4.5 GM PREMIX 100 ML IV SCH ×3 (09:30→14:00)
[2017-05-28] MEDS ORDERED: FAMOTIDINE 20 MG/2 ML VIAL IV PUSH SCH (09:30)
[2017-05-28] MEDS ORDERED: SODIUM CHLOR 0.9% 1000 ML INJ 1,000 ML IV ONE ×2 (09:30)
[2017-05-28] MEDS ORDERED: RESP: ALBUTEROL 2.5 MG/IPRATROPIUM 0.5 MG NEB (PRN) INH ×2 (09:30→10:30)
[2017-05-28] MEDS ORDERED: MISCELLANEOUS NURSING INFORMATION XX SCH ×2 (09:30→10:30)
[2017-05-28] MEDS ORDERED: SODIUM CHLOR 0.9% 250 ML INJ 250 ML IV ONE (09:45)
[2017-05-28] MEDS ORDERED: POTASSIUM PHOSPHATE MONOBASIC 500 MG TAB PO/TUBE PRN (10:30)
[2017-05-28] MEDS ORDERED: MAGNESIUM OXIDE 400 MG TAB PO PRN (10:30)
[2017-05-28] MEDS ORDERED: POTASSIUM CHLOR 20 MEQ PREMIX 100 ML IV PRN ×2 (10:30)
[2017-05-28] MEDS ORDERED: POTASSIUM PHOSPHATE INJ 30 MMOL in SODIUM CHLOR 0.9% 250 ML INJ 250 ML IV PRN (10:30)
[2017-05-28] MEDS ORDERED: ONDANSETRON HCL 4 MG/2 ML VIAL IV PUSH PRN (10:30)
[2017-05-28] MEDS ORDERED: SODIUM PHOSPHATE INJ 30 MMOL in SODIUM CHLOR 0.9% 250 ML INJ 240 ML IV PRN (10:30)
[2017-05-28] MEDS ORDERED: POTASSIUM CHLORIDE 25 MEQ EFFERVESCENT TAB PO PRN (10:30)
[2017-05-28] MEDS ORDERED: MAGNESIUM SULFATE INJ 2 GM in SODIUM CHLORIDE 0.9% INJ 96 ML IV PRN (10:30)
[2017-05-28] MEDS ORDERED: POTASSIUM CHLOR 40 MEQ PREMIX 100 ML IV PRN ×2 (10:30)
[2017-05-28] MEDS ORDERED: MAGNESIUM SULFATE INJ 4 GM in SODIUM CHLORIDE 0.9% INJ 92 ML IV PRN (10:30)
[2017-05-28] MEDS ORDERED: POTASSIUM PHOSPHATE MONOBASIC 500 MG TAB PO PRN (10:30)
[2017-05-28] MEDS ORDERED: DEXTROSE 50% IN WATER 50 ML VIAL(D50) IV PUSH PRN (10:30)
[2017-05-28] MEDS ORDERED: PHENYLEPH/NS 1000 MCG/10 ML SYR IV ONE (12:00)
[2017-05-28] MEDS ORDERED: SUCCINYLCHOLINE CHLORIDE 200 MG/10 ML VIAL IV ONE (12:00)
[2017-05-28] MEDS ORDERED: NEOSTIGMINE 5 MG/5 ML SYRINGE IV PUSH ONE (12:00)
[2017-05-28] MEDS ORDERED: ONDANSETRON HCL 4 MG/2 ML VIAL IV PUSH ONE (12:00)
[2017-05-28] MEDS ORDERED: ceFAZolin INJ 1,000 MG VIAL IV ONE (12:00)
[2017-05-28] MEDS ORDERED: DEXAMETHASONE SOD PHOS 4 MG/ML VIAL IV ONE (12:00)
[2017-05-28] MEDS ORDERED: NORMOSOL R INJ 1,000 ML IV ONE (12:00)
[2017-05-28] MEDS ORDERED: ePHEDrine/NS 25 MG/5 ML SYRINGE IV ONE (12:00)
[2017-05-28] MEDS ORDERED: PHENYLEPHRINE HCL 10 MG/ML VIAL IV ONE (12:00)
[2017-05-28] MEDS ORDERED: ROCURONIUM INJ 50 MG/5 ML SYRINGE IV PUSH ONE (12:00)
[2017-05-28] MEDS: INSULIN NovoLIN REGULAR SUPPLEMENTAL SCALE SQ SCH ×3 (12:00→23:28)
[2017-05-28] MEDS ORDERED: LIDOCAINE HCL 1% PF 5 ML SYRINGE OTHER ONE (12:00)
[2017-05-28] MEDS ORDERED: PROPOFOL 200 MG/20 ML AMP IV ONE (12:00)
[2017-05-28] MEDS ORDERED: GLYCOPYRROLATE 1 MG/5 ML SYRINGE IV PUSH ONE (12:00)
[2017-05-28] MEDS ORDERED: LACTATED RINGER'S 1000 ML INJ 1,000 ML IV ONE (12:00)
[2017-05-28] MEDS ORDERED: ceFAZolin INJ 1,000 MG VIAL ONE (12:52)
[2017-05-28] MEDS ORDERED: metroNIDAZOLE 500 MG INJ 100 ML IV ONE (12:52)
[2017-05-28 13:16] LABS: INTERNATIONAL NORMALIZED RATIO 1.9 RATIO; PROTHROMBIN TIME - PATIENT 19.4 SEC (9.8-11.6)
[2017-05-28] MEDS ORDERED: HYDROmorphone HCL PF 2 MG/ML VIAL ONE (13:31)
[2017-05-28] MEDS ORDERED: SUGAMMADEX SODIUM 200 MG/2 ML VIAL IV PUSH ONE (14:52)
[2017-05-28] MEDS ORDERED: DO NOT ADM ANY ANTICOAGULANT DRUGS PRN (15:30)
--- NOTE | 2017-05-28 15:48 | RADRPT ---
EXAM DATE/TIME: 05/28/2017 15:25 [facility] COMPARISON: CHEST SINGLE AP, May 28, 2017, 7:23. INDICATIONS : Right internal jugular central line placement. MEDICAL HISTORY : Cardiovascular disease. Gastroesophageal reflux disease. Carcinoma, colon. SURGICAL HISTORY : Colon resection. ENCOUNTER: Subsequent ACUITY: 1 day PAIN SCORE: Non-responsive. LOCATION: Right chest FINDINGS: There is placement of nasogastric tube is in the midline into the stomach. Right jugular catheter is in place terminating at superior vena cava right atrial level with cardiomegaly atherosclerotic cardi ovascular disease compensated and no evidence of pneumothorax in this expiratory film. CONCLUSION: Right jugular catheter terminates superior vena cava near the right atrial junction. No pneumothorax. Placement of a nasogastric tube to the midline into the stomach. Evan Oakes MD on May 28, 2017 at 15:45 Board Certified Radiologist. This report was verified electronically.
[2017-05-28] MEDS: SODIUM CHLOR 0.9% 1000 ML INJ 1,000 ML IV SCH ×2 (16:00→23:27)
[2017-05-28] MEDS: PIPERACIL-TAZO 4.5 GM PREMIX 100 ML IV SCH ×2 (16:00→20:52)
--- NOTE | 2017-05-28 16:47 | EKG ---
Date Performed: 05/28/2017 Time Performed: 07:13:37 PTAGE: 81 years EKG: ATRIAL FIBRILLATION RIGHT BUNDLE BRANCH BLOCK LEFT ANTERIOR FASCICULAR BLOCK PROBABLE ANTER OSEPTAL MYOCARDIAL INFARCTION ABNORMAL ECG NO PREVIOUS TRACING DOCTOR: Joel Scott Interpretating Date/Time 05/28/2017 16:46:14
[2017-05-28] MEDS: MORPHINE SULFATE 4 MG/ML INJ IV PUSH PRN (16:50)
--- NOTE | 2017-05-28 17:06 | HHI.HP ---
HPI Service Critical Care Medicine Primary Care Physician Ewelina Cisneros MD Admission Diagnosis strangulated ventral hernia, SIRS, leukocytosis, lactic acidosis Diagnosis: Chief Complaint: abdominal pain Travel History International Travel<30 Days: No Contact w/Intl Traveler <30 Da: No Traveled to Known Affected Are: No History of Present Illness 81yM with afib on coumadin presents with few days of crampy vague abdominal pain. had testicular removal surgery ~2 weeks ago which was uncomplicated. + n/v , nonbloody. found to have incarcerated ventral hernia, nonreducible. placed NGT in ER with > 3500cc output. after NGT placed, patient had some subjective relief. labs pertinent for wbc 17k, INR 5.5, lactate 2.8, Cr 1.2, sodium 131, BUN 40. Dr. Mulligan evaluated the patient and plans to take him to OR once coumadin coagulopathy reversed. given 4 units FFP emergently in ER. patient denies fever, chills, chest pain, sob. Review of Systems Constitutional: DENIES: Fatigue, Fever, Chills Respiratory: DENIES: Cough, Hemoptysis, Sputum production, Shortness of breath Cardiovascular: DENIES: Chest pain, Dyspnea on Exertion, Lower Extremity Edema , Orthopnea Gastrointestinal: COMPLAINS OF: Abdominal pain, Nausea, Vomiting, DENIES: Black stools, Bloody stools, Constipation, Diarrhea Genitourinary: DENIES: Testicular Pain, Testicular Swelling Musculoskeletal: DENIES: Back pain Neurologic: DENIES: Abnormal gait, Headache Psychiatric: DENIES: Confusion Past Family Social History Allergies: Coded Allergies: aspirin (Unverified Allergy, Severe, 05/28/17) atropine (Unverified Adverse Reaction, Unknown, SEVERE DIARRHEA, 05/28/17) diphenoxylate (Unverified Adverse Reaction, Unknown, SEVERE DIARRHEA, 05/28) Uncoded Allergies: ANTI INFLAMMATORIES (Allergy, Unknown, 10/13/14) Past Medical History Atrial fibrillation Rheumatoid arthritis Colon cancer in 2003, s/p chemo and surgical intervention Melgar's esophagus GERD BPH TURP Urinary incontinence HTN 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 sleep apnea, uses CPAP at home Past Surgical History colon resection 2003 bilateral total knee arthroplasty mastoid surgery x 2 TURP tonsillectomy 2 weeks s/p left testicular removal Reported Medications Folic Acid 1 Mg Tablet 1 Tab PO DAILY Warfarin 4 Mg Tab 8 Mg PO DAILY Metoprolol Tartrate 25 Mg Tab 12.5 Mg PO BID Methotrexate 2.5 Mg Tab 10 Mg PO Q7D Doxazosin (Doxazosin Mesylate) 8 Mg Tab 8 Mg PO DAILY Active Ordered Medications See MAR Family History reviewed and found to be noncontributory to his acute illness Social History rare etoh use, denies tob, doa. Physical Exam Vital Signs Vital Signs Date Time Temp Pulse Resp B/P (MAP) Pulse Ox O2 Delivery O2 Flow Rate FiO2 05/28/17 15:05 97.6 110 16 136/68 (90) 94 Simple Mask 8 139/62 (87) 05/28/17 12:18 98.0 97 20 125/62 94 05/28/17 12:13 97.8 89 18 120/62 95 05/28/17 12:00 106 05/28/17 11:59 98.2 97 20 125/61 94 05/28/17 11:52 98.6 88 20 119/78 95 05/28/17 11:33 98.0 95 20 119/71 94 05/28/17 11:01 96 19 122/73 (89) 94 05/28/17 10:33 98.0 96 17 120/73 94 05/28/17 10:15 98.0 97 18 101/63 97 05/28/17 10:00 102 19 103/68 (80) 97 Room Air 05/28/17 08:52 98 19 103/64 (77) 97 Room Air 05/28/17 08:40 112 19 88/53 (65) 97 Room Air 05/28/17 07:20 104 20 130/73 (92) 96 Room Air 05/28/17 07:18 96 Room Air 05/28/17 06:52 18 100 05/28/17 06:42 97.5 80 16 94/60 (71) 96 Laboratory Laboratory Tests Test 05/28/17 07:15 05/28/17 07:30 05/28/17 08:55 05/28/17 11:15 White Blood Count 17.7 Red Blood Count 4.95 Hemoglobin 15.3 Hematocrit 44.8 Mean Corpuscular Volume 90.4 Mean Corpuscular Hemoglobin 30.9 Mean Corpuscular Hemoglobin Concent 34.1 Red Cell Distribution Width 14.7 Platelet Count 364 Mean Platelet Volume 8.3 Neutrophils (%) (Auto) 92.6 Lymphocytes (%) (Auto) 3.4 Monocytes (%) (Auto) 3.8 Eosinophils (%) (Auto) 0.0 Basophils (%) (Auto) 0.2 Neutrophils # (Auto) 16.4 Lymphocytes # (Auto) 0.6 Monocytes # (Auto) 0.7 Eosinophils # (Auto) 0.0 Basophils # (Auto) 0.0 CBC Comment DIFF FINAL Differential Comment Blood Urea Nitrogen 40 Creatinine 1.26 Random Glucose 155 Total Protein 7.8 Albumin 3.5 Calcium Level 8.7 Alkaline Phosphatase 73 Aspartate Amino Transf (AST/SGOT) 23 Alanine Aminotransferase (ALT/SGPT) 20 Total Bilirubin 1.2 Sodium Level 131 Potassium Level 4.1 Chloride Level 94 Carbon Dioxide Level 26.4 Anion Gap 11 Estimat Glomerular Filtration Rate 55 Lactic Acid Level 2.8 Total Creatine Kinase 94 Troponin I LESS THAN 0.02 Lipase 222 Prothrombin Time 54.7 Prothromb Time International Ratio 5.5 Activated Partial Thromboplast Time 45.7 Urine Color YELLOW Urine Turbidity HAZY Urine pH 5.5 Urine Specific [place] 1.020 Urine Protein 100 Urine Glucose (UA) NEG Urine Ketones NEG Urine Occult Blood TRACE Urine Nitrite NEG Urine Bilirubin NEG Urine Urobilinogen LESS THAN 2.0 Urine Leukocyte Esterase LARGE Urine RBC 2 Urine WBC 36 Urine WBC Clumps MANY Urine Squamous Epithelial Cells <1 Urine Bacteria FEW Urine Hyaline Casts 10 Urine Mucus FEW Microscopic Urinalysis Comment CULTURE INDICATED Nasal Screen MRSA (PCR) MRSA DETECTED Test 05/28/17 12:20 05/28/17 14:15 Prothrombin Time 19.4 Prothromb Time International Ratio 1.9 Activated Partial Thromboplast Time 33.8 Lactic Acid Level 2.4 Blood Gas Puncture Site CL Blood Gas Patient Temperature 98.6 Blood Gas HCO3 25 Blood Gas Base Excess 0.7 Blood Gas Oxygen Saturation 91 Arterial Blood pH 7.37 Arterial Blood Partial Pressure CO2 45 Arterial Blood Partial Pressure O2 72 Arterial Blood Oxygen Content 15.3 Arterial Blood Carboxyhemoglobin 1.3 Arterial Blood Methemoglobin 1.2 Blood Gas Hemoglobin 12.0 Oxygen Delivery Device VENTILATOR Blood Gas Ventilator Setting AC/VT600/R6/P6 Blood Gas Inspired Oxygen 90 Date/Time Source Procedure Growth Status 05/28/17 12:30 Blood Peripheral Aerobic Blood Culture Pending Received 05/28/17 12:30 Blood Peripheral Anaerobic Blood Culture Pending Received 05/28/17 08:55 Urine Clean Catch Urine Culture Pending Received Result Diagram: 05/28/1771405/28/17714 Septic Shock Reassessment Septic shock perfusion: reassessment completed Caprini VTE Risk Assessment Caprini VTE Risk Assessment: Mod/High Risk (score >= 2) Caprini Risk Assessment Model Point Value = 1 Point Value = 2 Point Value = 3 Point Value = 5 Age 41-60 Minor surgery BMI > 25 kg/m2 Swollen legs Varicose veins or History of unexplained or recurrent spontaneous Oral contraceptives or hormone replacement Sepsis (< 1 month) Serious lung disease, including pneumonia (< 1 month) Abnormal pulmonary function Acute myocardial infarction Congestive heart failure (< 1 month) History of inflammatory bowel disease Medical patient at bed rest Age 61-74 Arthroscopic surgery Major open surgery (> 45 min) Laparoscopic surgery (> 45 min) Malignancy Confined to bed (> 72 hours) Immobilizing plaster cast Central venous access Age >= 75 History of VTE Family history of VTE Factor V Leiden Prothrombin [id number] Lupus anticoagulant Anticardiolipin antibodies Elevated serum homocysteine Heparin-induced thrombocytopenia Other congenital or acquired thrombophilia Stroke (< 1 month) Elective arthroplasty Hip, pelvis, or leg fracture Acute spinal cord injury (< 1 month) Prophylaxis Regimen Total Risk Factor Score Risk Level Prophylaxis Regimen 0-1 Low Early ambulation 2 Moderate Order ONE of the following: *Sequential Compression Device (SCD) *Heparin 5000 units SQ BID 3-4 Higher Order ONE of the following medications: *Heparin 5000 units SQ TID *Enoxaparin/Lovenox 40 mg SQ daily (WT < 150 kg, CrCl > 30 mL/min) *Enoxaparin/Lovenox 30 mg SQ daily (WT < 150 kg, CrCl > 10-29 mL/min) *Enoxaparin/Lovenox 30 mg SQ BID (WT < 150 kg, CrCl > 30 mL/min) AND/OR *Sequential Compression Device (SCD) 5 or more Highest Order ONE of the following medications: *Heparin 5000 units SQ TID (Preferred with Epidurals) *Enoxaparin/Lovenox 40 mg SQ daily (WT < 150 kg, CrCl > 30 mL/min) *Enoxaparin/Lovenox 30 mg SQ daily (WT < 150 kg, CrCl > 10-29 mL/min) *Enoxaparin/Lovenox 30 mg SQ BID (WT < 150 kg, CrCl > 30 mL/min) AND *Sequential Compression Device (SCD) Assessment and Plan Assessment and Plan Assessment: 81yM with afib on coumadin who presents with incarcerated ventral hernia with evidence of severe sepsis and end-organ damage including JORDI and elevated lactate. Admit to ICU. volume resuscitate, urgent laparotomy, reverse coagulopathy. Incarcerated Ventral Hernia lactic acidosis Severe sepsis coumadin coagulopathy acute kidney injury acute intravascular volume depletion Plan: admit to ICU serial lactate zosyn iv: per STOP-IT trial criteria, would need 4 days abx. to OR for laparotomy FFP x 4: will use this as volume resuscitation. colorectal consult mivf daily coags will need to re-coumadinize once improved. place [place], close uop monitoring. NPO NGT to LIWS. SCDs, no pharmacologic dvt prophylaxis currently. Code Status Full Code Discussed Condition With Dr. solis, Dr. Mulligan, ER nurse, ICU nurse Diallo Dubois MD May 28, 2017 17:06
[2017-05-28] MEDS ORDERED: ACETAMINOPHEN 325 MG TAB PO PRN (19:30)
[2017-05-28] MEDS: FAMOTIDINE 20 MG/2 ML VIAL IV PUSH SCH (20:53)
[2017-05-28] MEDS: SODIUM CHLORIDE 0.9% FLUSH 10 ML FLUSH IV FLUSH SCH (20:53)
[2017-05-28] MEDS: CHLORHEXIDINE GLUCONATE 2 % 1 PACK (2 CLOTHS) TOP SCH (20:53)
[2017-05-29] VITALS (13 sets, daily range): BP systolic 93–108; BP diastolic 54–68; PULSE 106–124; RESP 16–24; TEMP 97.1–98.9; O2SAT 91–98
[2017-05-29] MEDS: PIPERACIL-TAZO 4.5 GM PREMIX 100 ML IV SCH ×4 (03:05→21:57)
[2017-05-29] MEDS ORDERED: CHLORHEXIDINE GLUCONATE 2 % 1 PACK (2 CLOTHS) TOP SCH (04:00)
[2017-05-29] MEDS: SODIUM CHLOR 0.9% 1000 ML INJ 1,000 ML IV SCH ×3 (05:28→17:29)
[2017-05-29 05:35] LABS: AUTOMATED NEUTROPHIL # 6.8 TH/MM3 (1.8-7.7); BASOPHIL % 0.1 % (0.0-2.0); HEMATOCRIT 36.7 % (39.0-51.0); HEMOGLOBIN 12.7 GM/DL (13.0-17.0); LYMPH % 3.5 % (9.0-44.0); LYMPHOCYTE # 0.3 TH/MM3 (1.0-4.8); MEAN CELL VOLUME 90.4 FL (80.0-100.0); MEAN CORPUSCULAR HEMOGLOBIN 31.2 PG (27.0-34.0); MEAN CORPUSCULAR HGB CONC 34.6 % (32.0-36.0); MEAN PLATELET VOLUME 8.5 FL (7.0-11.0); MONO % 8.5 % (0.0-8.0); MONOCYTE # 0.7 TH/MM3 (0-0.9); NEUT % 87.9 % (16.0-70.0); PLATELET COUNT 286 TH/MM3 (150-450); RED BLOOD COUNT 4.07 MIL/MM3 (4.50-5.90); RED CELL DISTRIBUTION WIDTH 14.8 % (11.6-17.2); WHITE BLOOD COUNT 7.7 TH/MM3 (4.0-11.0)
[2017-05-29 05:46] LABS: INTERNATIONAL NORMALIZED RATIO 2.6 RATIO; PROTHROMBIN TIME - PATIENT 25.9 SEC (9.8-11.6)
[2017-05-29] MEDS: INSULIN NovoLIN REGULAR SUPPLEMENTAL SCALE SQ SCH ×3 (06:00→17:29)
[2017-05-29 06:08] LABS: ALBUMIN 2.5 GM/DL (3.4-5.0); CALCIUM-PROTEIN CORRECTED 7.7 MG/DL (8.5-10.1); CREATININE 0.8 MG/DL (0.60-1.30); TOTAL BILIRUBIN ADULT 1.5 MG/DL (0.2-1.0); TOTAL PROTEIN 5.7 GM/DL (6.4-8.2)
[2017-05-29] MEDS: MORPHINE SULFATE 4 MG/ML INJ IV PUSH PRN ×2 (07:39→15:28)
--- NOTE | 2017-05-29 07:57 | HHI.CCPN ---
Subjective Remarks/Hospital Course Hospital Course: 81yM with afib on coumadin presents with few days of crampy vague abdominal pain. had testicular removal surgery ~2 weeks ago which was uncomplicated. + n/v , nonbloody. found to have incarcerated ventral hernia, nonreducible. placed NGT in ER with > 3500cc output. after NGT placed, patient had some subjective relief. labs pertinent for wbc 17k, INR 5.5, lactate 2.8, Cr 1.2, sodium 131, BUN 40. Dr. Mulligan evaluated the patient and plans to take him to OR once coumadin coagulopathy reversed. given 4 units FFP emergently in ER. patient denies fever, chills, chest pain, sob. Subjective: 05/29: doing well. taken to OR yesterday for reduction and hernia repair. mildly painful today on my exam, but actively receiving iv morphine. HR elevated in 120s. uop adequate, Cr downtrending. INR 2.6 this AM, no signs of bleeding. [place] with minimal serous output. Objective Vital Signs Date Time Temp Pulse Resp B/P (MAP) Pulse Ox O2 Delivery O2 Flow Rate FiO2 05/29/17 06:00 116 05/29/17 04:00 97.9 22 103/64 (77) 94 05/28/17 22:20 3.00 05/28/17 20:24 Nasal Cannula Result Diagram: 05/29/17 0500 05/29/17 0500 Other Results Laboratory Tests Test 05/28/17 14:15 Blood Gas Puncture Site CL Blood Gas Patient Temperature 98.6 Blood Gas HCO3 25 mmol/L (22-26) Blood Gas Base Excess 0.7 mmol/L (-2-2) Blood Gas Oxygen Saturation 91 % (90-100) Arterial Blood pH 7.37 (7.380-7.420) Arterial Blood Partial Pressure CO2 45 mmHg (38-42) Arterial Blood Partial Pressure O2 72 mmHg (61-120) Arterial Blood Oxygen Content 15.3 Vol % (12.0-20.0) Arterial Blood Carboxyhemoglobin 1.3 % (0-4) Arterial Blood Methemoglobin 1.2 % (0-2) Blood Gas Hemoglobin 12.0 G/DL (12.0-16.0) Oxygen Delivery Device VENTILATOR Blood Gas Ventilator Setting AC/VT600/R6/P6 Blood Gas Inspired Oxygen 90 % Objective Remarks gen: awake, alert, elderly male, lying in bed. heent: perrl. mmm. NGT to LIWS neck: no jvd. trachea midline. chest: 3L nc o2. unlabored. equal chest rise. cv: tachycardic rate, irregularly irregular rhythm. afib by tele. abd: binder in place. abd is mildly and appropriately tender to palpation diffusely. dressings c/d/i. extr: no peripheral edema. warm, well perfused. neuro: RASS 0. CAM -. GCS 15. follows commands. no focal deficits. A/P Assessment and Plan Assessment: 81yM with afib on coumadin who presents with incarcerated ventral hernia with evidence of severe sepsis and end-organ damage including JORDI and elevated lactate. Now s/p reduction and repair. clinically improving. end-organ function returning to baseline. continue NPO with NGT given no ROBF currently. INR is 2.6 which given no bleeding evidence is actually preferred, so will not add additional FFP: will allow INR to slowly downtrend and can restart warfarin at Dr. Mulligan's preference. May be kate to watch in ICU today, but clinically much improved. Incarcerated Ventral Hernia - s/p repair and reduction lactic acidosis - resolved. Severe sepsis - resolving. coumadin coagulopathy acute kidney injury - resolved. acute intravascular volume depletion - resolved. Acute post-operative pain Atrial Fibrillation Plan: continue morphine prn for pain add back home metoprolol for afib. (5mg iv q6h scheduled while NPO. transition to PO dosing when return of bowel function). lactate downtrending. uop adequate. continue to monitor. zosyn iv: per STOP-IT trial criteria, would need 4 days abx. (anticipated stop date 05/31) daily coags daily cbc, bmp. does not meet transfusion criteria. ICU electrolyte protocol. keep mivf today. anticoagulation management per Dr. Mulligan. SCDs, no pharmacologic dvt prophylaxis currently: has therapeutic INR. Diallo Dubois MD May 29, 2017 07:57
[2017-05-29] MEDS: METOPROLOL TARTRATE 5 MG/5 ML VIAL IV PUSH SCH ×3 (09:03→19:59)
[2017-05-29] MEDS: FAMOTIDINE 20 MG/2 ML VIAL IV PUSH SCH ×2 (09:03→19:59)
[2017-05-29] MEDS: SODIUM CHLORIDE 0.9% FLUSH 10 ML FLUSH IV FLUSH SCH ×2 (09:04→19:59)
[2017-05-29] MEDS: CHLORHEXIDINE GLUCONATE 2 % 1 PACK (2 CLOTHS) TOP SCH (19:35)
--- NOTE | 2017-05-29 23:01 | HHI.PR ---
Subjective Remarks C/R Surg POD #1 afebrile, VSS UO good [place] min Objective - Vital Signs Date Time Temp Pulse Resp B/P (MAP) Pulse Ox O2 Delivery O2 Flow Rate FiO2 05/29/17 19:42 95 Nasal Cannula 05/29/17 18:00 110 05/29/17 16:02 20 05/29/17 16:00 98.4 108/61 (77) 05/29/17 09:25 3.00 05/29/17 08:00 95 Result Diagram: 05/29/17 0500 05/29/17 0500 Objective Remarks PE alert Abd - soft, NGT less, wound dry A/P Assessment and Plan Imp: stable post-op OOB decr IVF NGT to gravity Jonah Mulligan MD May 29, 2017 23:01
[2017-05-30] VITALS (14 sets, daily range): BP systolic 97–132; BP diastolic 63–69; PULSE 82–104; RESP 20–22; TEMP 97.5–98.5; O2SAT 96–98
[2017-05-30] MEDS: SODIUM CHLOR 0.9% 1000 ML INJ 1,000 ML IV SCH ×2 (00:54→23:49)
[2017-05-30] MEDS: METOPROLOL TARTRATE 5 MG/5 ML VIAL IV PUSH SCH ×4 (03:18→19:52)
[2017-05-30] MEDS: PIPERACIL-TAZO 4.5 GM PREMIX 100 ML IV SCH ×4 (03:18→23:48)
[2017-05-30 05:42] LABS: HEMATOCRIT 34.3 % (39.0-51.0); HEMOGLOBIN 11.7 GM/DL (13.0-17.0); MEAN CELL VOLUME 91.1 FL (80.0-100.0); MEAN CORPUSCULAR HEMOGLOBIN 31.2 PG (27.0-34.0); MEAN CORPUSCULAR HGB CONC 34.2 % (32.0-36.0); MEAN PLATELET VOLUME 8.4 FL (7.0-11.0); PLATELET COUNT 255 TH/MM3 (150-450); RED BLOOD COUNT 3.77 MIL/MM3 (4.50-5.90); RED CELL DISTRIBUTION WIDTH 14.3 % (11.6-17.2); WHITE BLOOD COUNT 9.4 TH/MM3 (4.0-11.0)
[2017-05-30 05:50] LABS: INTERNATIONAL NORMALIZED RATIO 1.7 RATIO; PROTHROMBIN TIME - PATIENT 16.7 SEC (9.8-11.6)
[2017-05-30] MEDS: INSULIN NovoLIN REGULAR SUPPLEMENTAL SCALE SQ SCH ×4 (06:00→16:58)
[2017-05-30 06:56] LABS: BICARBONATE 27.5 MEQ/L (21.0-32.0); CALCIUM 7.3 MG/DL (8.5-10.1); CREATININE 0.58 MG/DL (0.60-1.30)
[2017-05-30 07:19] LABS: CALCIUM-PROTEIN CORRECTED 8.2 MG/DL (8.5-10.1); TOTAL PROTEIN 5.4 GM/DL (6.4-8.2)
[2017-05-30] MEDS: FAMOTIDINE 20 MG/2 ML VIAL IV PUSH SCH ×2 (08:19→19:52)
[2017-05-30] MEDS: SODIUM CHLORIDE 0.9% FLUSH 10 ML FLUSH IV FLUSH SCH ×2 (08:21→19:52)
--- NOTE | 2017-05-30 17:35 | HHI.PR ---
Subjective Remarks This is an 81yM with afib on coumadin presents with few days of crampy vague abdominal pain. had testicular removal surgery ~2 weeks ago which was uncomplicated. + n/v, nonbloody. found to have incarcerated ventral hernia, nonreducible. placed NGT in ER with > 3500cc output. after NGT placed, patient had some subjective relief. labs pertinent for wbc 17k, INR 5.5, lactate 2.8, Cr 1.2, sodium 131, BUN 40. Dr. Mulligan evaluated the patient and plans to take him to OR once Coumadin coagulopathy reversed. given 4 units FFP emergently in ER. patient denies fever, chills, chest pain, sob. Patient was taken to OR with Dr. Mulligan for exploratory laparotomy with ventral hernia repair. 05/30 Medical team consulted to assume care. Patient resting in bed A&O in no acute distress with family present at bedside. Per RN patient has had BM and is tolerating liquid diet. Objective Vitals Vital Signs Date Time Temp Pulse Resp B/P (MAP) Pulse Ox O2 Delivery O2 Flow Rate FiO2 05/30/17 16:00 82 05/30/17 14:00 86 05/30/17 12:00 98.3 97 22 97/65 (76) 98 05/30/17 12:00 89 05/30/17 10:10 98 05/30/17 10:00 86 05/30/17 08:00 82 05/30/17 08:00 98.3 97 22 97/65 (76) 98 05/30/17 07:56 97 CPAP 21 05/30/17 06:00 86 05/30/17 04:00 82 05/30/17 04:00 97.5 86 20 103/63 (76) 97 05/30/17 02:00 94 05/30/17 00:00 97 05/30/17 00:00 98.3 97 22 97/65 (76) 98 Arterial Line 05/29/17 22:30 3.00 05/29/17 22:00 120 05/29/17 20:00 120 05/29/17 20:00 98.9 120 23 93/54 (67) 94 Arterial Line 05/29/17 19:42 95 Nasal Cannula 05/29/17 19:00 93 Room Air 05/29/17 18:00 110 05/30/17 05/30/17 05/31/17 15:00 23:00 07:00 Intake Total 600 ml Output Total 450 ml Balance 150 ml Intake Oral 600 ml Output Urine Total 450 ml # Bowel Movements 1 Result Diagram: 05/30/17 0500 05/30/17 0500 Other Results Laboratory Tests Test 05/28/17 07:15 05/28/17 07:30 05/28/17 08:55 05/28/17 11:15 White Blood Count 17.7 TH/MM3 Red Blood Count 4.95 MIL/MM3 Hemoglobin 15.3 GM/DL Hematocrit 44.8 % Mean Corpuscular Volume 90.4 FL Mean Corpuscular Hemoglobin 30.9 PG Mean Corpuscular Hemoglobin Concent 34.1 % Red Cell Distribution Width 14.7 % Platelet Count 364 TH/MM3 Mean Platelet Volume 8.3 FL Neutrophils (%) (Auto) 92.6 % Lymphocytes (%) (Auto) 3.4 % Monocytes (%) (Auto) 3.8 % Eosinophils (%) (Auto) 0.0 % Basophils (%) (Auto) 0.2 % Neutrophils # (Auto) 16.4 TH/MM3 Lymphocytes # (Auto) 0.6 TH/MM3 Monocytes # (Auto) 0.7 TH/MM3 Eosinophils # (Auto) 0.0 TH/MM3 Basophils # (Auto) 0.0 TH/MM3 CBC Comment DIFF FINAL Differential Comment Blood Urea Nitrogen 40 MG/DL Creatinine 1.26 MG/DL Random Glucose 155 MG/DL Total Protein 7.8 GM/DL Albumin 3.5 GM/DL Calcium Level 8.7 MG/DL Alkaline Phosphatase 73 U/L Aspartate Amino Transf (AST/SGOT) 23 U/L Alanine Aminotransferase (ALT/SGPT) 20 U/L Total Bilirubin 1.2 MG/DL Sodium Level 131 MEQ/L Potassium Level 4.1 MEQ/L Chloride Level 94 MEQ/L Carbon Dioxide Level 26.4 MEQ/L Anion Gap 11 MEQ/L Estimat Glomerular Filtration Rate 55 ML/MIN Lactic Acid Level 2.8 mmol/L Total Creatine Kinase 94 U/L Troponin I LESS THAN 0.02 NG/ML Lipase 222 U/L Prothrombin Time 54.7 SEC Prothromb Time International Ratio 5.5 RATIO Activated Partial Thromboplast Time 45.7 SEC Urine Color YELLOW Urine Turbidity HAZY Urine pH 5.5 Urine Specific [place] 1.020 Urine Protein 100 mg/dL Urine Glucose (UA) NEG mg/dL Urine Ketones NEG mg/dL Urine Occult Blood TRACE Urine Nitrite NEG Urine Bilirubin NEG Urine Urobilinogen LESS THAN 2.0 MG/DL Urine Leukocyte Esterase LARGE Urine RBC 2 /hpf Urine WBC 36 /hpf Urine WBC Clumps MANY Urine Squamous Epithelial Cells <1 /hpf Urine Bacteria FEW /hpf Urine Hyaline Casts 10 /lpf Urine Mucus FEW /lpf Microscopic Urinalysis Comment CULTURE INDICATED Nasal Screen MRSA (PCR) MRSA DETECTED Test 05/28/17 12:20 05/28/17 14:15 05/29/17 05:00 05/30/17 05:00 Prothrombin Time 19.4 SEC 25.9 SEC 16.7 SEC Prothromb Time International Ratio 1.9 RATIO 2.6 RATIO 1.7 RATIO Activated Partial Thromboplast Time 33.8 SEC 38.7 SEC Lactic Acid Level 2.4 mmol/L 1.3 mmol/L Blood Gas Puncture Site CL Blood Gas Patient Temperature 98.6 Blood Gas HCO3 25 mmol/L Blood Gas Base Excess 0.7 mmol/L Blood Gas Oxygen Saturation 91 % Arterial Blood pH 7.37 Arterial Blood Partial Pressure CO2 45 mmHg Arterial Blood Partial Pressure O2 72 mmHg Arterial Blood Oxygen Content 15.3 Vol % Arterial Blood Carboxyhemoglobin 1.3 % Arterial Blood Methemoglobin 1.2 % Blood Gas Hemoglobin 12.0 G/DL Oxygen Delivery Device VENTILATOR Blood Gas Ventilator Setting AC/VT600/R6/P6 Blood Gas Inspired Oxygen 90 % White Blood Count 7.7 TH/MM3 9.4 TH/MM3 Red Blood Count 4.07 MIL/MM3 3.77 MIL/MM3 Hemoglobin 12.7 GM/DL 11.7 GM/DL Hematocrit 36.7 % 34.3 % Mean Corpuscular Volume 90.4 FL 91.1 FL Mean Corpuscular Hemoglobin 31.2 PG 31.2 PG Mean Corpuscular Hemoglobin Concent 34.6 % 34.2 % Red Cell Distribution Width 14.8 % 14.3 % Platelet Count 286 TH/MM3 255 TH/MM3 Mean Platelet Volume 8.5 FL 8.4 FL Neutrophils (%) (Auto) 87.9 % Lymphocytes (%) (Auto) 3.5 % Monocytes (%) (Auto) 8.5 % Eosinophils (%) (Auto) 0.0 % Basophils (%) (Auto) 0.1 % Neutrophils # (Auto) 6.8 TH/MM3 Lymphocytes # (Auto) 0.3 TH/MM3 Monocytes # (Auto) 0.7 TH/MM3 Eosinophils # (Auto) 0.0 TH/MM3 Basophils # (Auto) 0.0 TH/MM3 CBC Comment DIFF FINAL Differential Comment Blood Urea Nitrogen 26 MG/DL 20 MG/DL Creatinine 0.80 MG/DL 0.58 MG/DL Random Glucose 136 MG/DL 106 MG/DL Total Protein 5.7 GM/DL 5.4 GM/DL Albumin 2.5 GM/DL Calcium Level 7.0 MG/DL 7.3 MG/DL Alkaline Phosphatase 49 U/L Aspartate Amino Transf (AST/SGOT) 22 U/L Alanine Aminotransferase (ALT/SGPT) 18 U/L Total Bilirubin 1.5 MG/DL Sodium Level 140 MEQ/L 142 MEQ/L Potassium Level 3.6 MEQ/L 3.2 MEQ/L Chloride Level 107 MEQ/L 108 MEQ/L Carbon Dioxide Level 24.0 MEQ/L 27.5 MEQ/L Anion Gap 9 MEQ/L 7 MEQ/L Estimat Glomerular Filtration Rate 93 ML/MIN 134 ML/MIN Protein Corrected Calcium 7.7 MG/DL 8.2 MG/DL Imaging Last Impressions Chest X-Ray 05/28/17703 Signed Impressions: Service Date/Time: Sunday, May 28, 2017 07:23 - CONCLUSION: No acute disease. The enlargement of cardiac silhouette may be secondary to portable technique. Tsering Poole MD Abdomen/Pelvis CT 05/28/17703 Signed Impressions: Service Date/Time: Sunday, May 28, 2017 07:25 - CONCLUSION: There is a small bowel obstruction secondary to an area of small bowel herniation through an anterior midline abdominal wall defect. Portions of the herniated small bowel are decompressed with abnormal brain of the adjacent fat and appearance of volvulus. Findings are highly concerning for strangulation. There is severe dilation of the stomach with fluid identified within the esophagus and abnormalities identified within the bilateral lower lobes concerning for aspiration.. Tsering Poole MD Head CT 05/28/17 0000 Signed Impressions: Service Date/Time: Sunday, May 28, 2017 07:23 - CONCLUSION: Normal examination for a patient of this age. Tsering Poole MD Objective Remarks GENERAL: This is a well-nourished, well-developed patient, in no apparent distress. CARDIOVASCULAR: Regular rate and rhythm RESPIRATORY: Clear to auscultation. Breath sounds equal bilaterally. GASTROINTESTINAL: Abdomen soft, non-tender, nondistended. Normal active bowel sounds MUSCULOSKELETAL: Extremities without clubbing, cyanosis, or edema. NEURO: Alert & Oriented x4 to person, place, time, situation. Moves all ext x4 A/P Problem List: (1) Incarcerated ventral hernia ICD Codes: K46.0 - Unspecified abdominal hernia with obstruction, without gangrene Plan: Incarcerated Ventral Hernia - s/p repair and reduction continue morphine prn for pain advance diet per surgery patient has had BM and is tolerating liquid diet lactic acidosis - resolved likely secondary to acute intravascular volume depletion which has resolved zosyn iv: per STOP-IT trial criteria, would need 4 days abx stop date 05/31 Severe sepsis - resolving. Coumadin coagulopathy on admission INR 5.5 patient received vit K repeat INR 1.7 (05/30) acute kidney injury - resolved. Atrial Fibrillation Lopressor 5mg iv q6h scheduled while NPO. will resume home metoprolol 12.5 mg PO BID once patient tolerating PO DVT prophlaysis with SCDs anticoagulation management per Dr. Mulligan. Assessment and Plan Patient examined. Assessment and plan formulated with Alexandrea Disla PA-C. I agree with the above. Alexandrea Disla May 30, 2017 17:35 Ranjit Manuel DO Jun 05, 2017 00:59
--- NOTE | 2017-05-30 20:50 | HHI.PR ---
Subjective Remarks C/R Surg POD #2 afebrile, VSS UO good [place] min +BM Objective - Vital Signs Date Time Temp Pulse Resp B/P (MAP) Pulse Ox O2 Delivery O2 Flow Rate FiO2 05/30/17 18:00 82 05/30/17 16:00 98.0 132/69 (90) 05/30/17 12:00 22 98 05/30/17 07:56 CPAP 21 05/29/17 22:30 3.00 Result Diagram: 05/30/17 0500 05/30/17 0500 Objective Remarks PE alert Abd - soft, wound dry, min tympany A/P Assessment and Plan Imp: OOB decr IVF adv diet Jonah Mulligan MD May 30, 2017 20:50
--- NOTE | 2017-05-30 20:57 | HHI.FF ---
Face to Face Verification Diagnosis: (1) Incarcerated ventral hernia Physical Therapy Order: Evaluate and Treat, Improve ambulation, Strength and gait training Home Health Nursing Order: Medical education Signs/symptoms of disease process Wound care and dressing changes I have seen patient Jailene James on 05/30/17. My clinical findings support the need for the requested home health care services because: Ltd mobility - disease progression Patient has SOB Deconditioned w/ increased weakness Need for psychosocial assistance Infection w/ risk of complications I certify that my clinical findings support that this patient is homebound because: Post-op weakness Impaired cognitive ability/safety Unsteady gait/balance Jonah Mulligan MD May 30, 2017 20:57
[2017-05-30] MEDS: CHLORHEXIDINE GLUCONATE 2 % 1 PACK (2 CLOTHS) TOP SCH (23:33)
[2017-05-31] VITALS (11 sets, daily range): BP systolic 99–134; BP diastolic 62–82; PULSE 74–103; RESP 15–23; TEMP 97.9–98.3; O2SAT 95–98
[2017-05-31] MEDS: PIPERACIL-TAZO 4.5 GM PREMIX 100 ML IV SCH ×2 (03:21→08:22)
[2017-05-31] MEDS: METOPROLOL TARTRATE 5 MG/5 ML VIAL IV PUSH SCH ×2 (03:21→08:20)
[2017-05-31 04:06] LABS: HEMATOCRIT 33.5 % (39.0-51.0); HEMOGLOBIN 11.5 GM/DL (13.0-17.0); MEAN CELL VOLUME 90.9 FL (80.0-100.0); MEAN CORPUSCULAR HEMOGLOBIN 31.2 PG (27.0-34.0); MEAN CORPUSCULAR HGB CONC 34.3 % (32.0-36.0); MEAN PLATELET VOLUME 8.1 FL (7.0-11.0); PLATELET COUNT 285 TH/MM3 (150-450); RED BLOOD COUNT 3.68 MIL/MM3 (4.50-5.90); RED CELL DISTRIBUTION WIDTH 14.4 % (11.6-17.2); WHITE BLOOD COUNT 9.6 TH/MM3 (4.0-11.0)
[2017-05-31 04:16] LABS: INTERNATIONAL NORMALIZED RATIO 1.5 RATIO; PROTHROMBIN TIME - PATIENT 15.1 SEC (9.8-11.6)
[2017-05-31 04:31] LABS: BICARBONATE 26.1 MEQ/L (21.0-32.0); CALCIUM 7.3 MG/DL (8.5-10.1); CREATININE 0.46 MG/DL (0.60-1.30)
[2017-05-31 04:45] LABS: CALCIUM-PROTEIN CORRECTED 8.3 MG/DL (8.5-10.1); TOTAL PROTEIN 5.3 GM/DL (6.4-8.2)
[2017-05-31] MEDS: INSULIN NovoLIN REGULAR SUPPLEMENTAL SCALE SQ SCH ×5 (05:30→23:55)
[2017-05-31] MEDS: SODIUM CHLORIDE 0.9% FLUSH 10 ML FLUSH IV FLUSH SCH ×2 (08:18→20:53)
[2017-05-31] MEDS: FAMOTIDINE 20 MG/2 ML VIAL IV PUSH SCH ×2 (08:18→20:48)
[2017-05-31] MEDS: SODIUM CHLOR 0.9% 1000 ML INJ 1,000 ML IV SCH ×2 (10:29→23:30)
[2017-05-31] MEDS: METOPROLOL TARTRATE 25 MG TAB PO SCH ×2 (12:15→20:52)
--- NOTE | 2017-05-31 14:40 | HHI.PR ---
Subjective Remarks Patient reports feeling well asking about going home Objective Vitals Vital Signs Date Time Temp Pulse Resp B/P (MAP) Pulse Ox O2 Delivery O2 Flow Rate FiO2 05/31/17 13:00 Room Air 05/31/17 11:30 103 05/31/17 11:29 97.9 103 18 115/62 (79) 96 05/31/17 08:00 93 05/31/17 07:57 93 15 117/78 (91) 96 05/31/17 04:54 100 117/63 (81) 95 05/31/17 02:00 74 05/31/17 00:00 98.3 96 23 99/69 (79) 97 05/31/17 00:00 96 05/30/17 22:00 104 05/30/17 22:00 3.00 05/30/17 20:00 86 05/30/17 20:00 98.1 86 22 112/65 (81) 96 05/30/17 19:00 96 Room Air 05/30/17 18:00 82 05/30/17 16:00 82 05/30/17 16:00 98.0 83 132/69 (90) 05/31/17 05/31/17 06/01/17 15:00 23:00 07:00 Intake Total 100 ml Output Total 665 ml Balance -565 ml IV Total 100 ml Output Urine Total 650 ml Drainage Total 15 ml Result Diagram: 05/31/17 0345 05/31/17 0345 Other Results Laboratory Tests Test 05/29/17 05:00 05/30/17 05:00 05/31/17 03:45 White Blood Count 7.7 TH/MM3 9.4 TH/MM3 9.6 TH/MM3 Red Blood Count 4.07 MIL/MM3 3.77 MIL/MM3 3.68 MIL/MM3 Hemoglobin 12.7 GM/DL 11.7 GM/DL 11.5 GM/DL Hematocrit 36.7 % 34.3 % 33.5 % Mean Corpuscular Volume 90.4 FL 91.1 FL 90.9 FL Mean Corpuscular Hemoglobin 31.2 PG 31.2 PG 31.2 PG Mean Corpuscular Hemoglobin Concent 34.6 % 34.2 % 34.3 % Red Cell Distribution Width 14.8 % 14.3 % 14.4 % Platelet Count 286 TH/MM3 255 TH/MM3 285 TH/MM3 Mean Platelet Volume 8.5 FL 8.4 FL 8.1 FL Neutrophils (%) (Auto) 87.9 % Lymphocytes (%) (Auto) 3.5 % Monocytes (%) (Auto) 8.5 % Eosinophils (%) (Auto) 0.0 % Basophils (%) (Auto) 0.1 % Neutrophils # (Auto) 6.8 TH/MM3 Lymphocytes # (Auto) 0.3 TH/MM3 Monocytes # (Auto) 0.7 TH/MM3 Eosinophils # (Auto) 0.0 TH/MM3 Basophils # (Auto) 0.0 TH/MM3 CBC Comment DIFF FINAL Differential Comment Prothrombin Time 25.9 SEC 16.7 SEC 15.1 SEC Prothromb Time International Ratio 2.6 RATIO 1.7 RATIO 1.5 RATIO Activated Partial Thromboplast Time 38.7 SEC 33.3 SEC Blood Urea Nitrogen 26 MG/DL 20 MG/DL 14 MG/DL Creatinine 0.80 MG/DL 0.58 MG/DL 0.46 MG/DL Random Glucose 136 MG/DL 106 MG/DL 106 MG/DL Total Protein 5.7 GM/DL 5.4 GM/DL 5.3 GM/DL Albumin 2.5 GM/DL Calcium Level 7.0 MG/DL 7.3 MG/DL 7.3 MG/DL Alkaline Phosphatase 49 U/L Aspartate Amino Transf (AST/SGOT) 22 U/L Alanine Aminotransferase (ALT/SGPT) 18 U/L Total Bilirubin 1.5 MG/DL Sodium Level 140 MEQ/L 142 MEQ/L 140 MEQ/L Potassium Level 3.6 MEQ/L 3.2 MEQ/L 3.1 MEQ/L Chloride Level 107 MEQ/L 108 MEQ/L 107 MEQ/L Carbon Dioxide Level 24.0 MEQ/L 27.5 MEQ/L 26.1 MEQ/L Anion Gap 9 MEQ/L 7 MEQ/L 7 MEQ/L Estimat Glomerular Filtration Rate 93 ML/MIN 134 ML/MIN 176 ML/MIN Lactic Acid Level 1.3 mmol/L Protein Corrected Calcium 7.7 MG/DL 8.2 MG/DL 8.3 MG/DL Imaging Last Impressions Chest X-Ray 05/28/17 0704 Signed Impressions: Service Date/Time: Sunday, May 28, 2017 07:23 - CONCLUSION: No acute disease. The enlargement of cardiac silhouette may be secondary to portable technique. Tsering Poole MD Abdomen/Pelvis CT 05/28/17 0704 Signed Impressions: Service Date/Time: Sunday, May 28, 2017 07:25 - CONCLUSION: There is a small bowel obstruction secondary to an area of small bowel herniation through an anterior midline abdominal wall defect. Portions of the herniated small bowel are decompressed with abnormal brain of the adjacent fat and appearance of volvulus. Findings are highly concerning for strangulation. There is severe dilation of the stomach with fluid identified within the esophagus and abnormalities identified within the bilateral lower lobes concerning for aspiration.. Tsering Poole MD Head CT 05/28/17 0000 Signed Impressions: Service Date/Time: Sunday, May 28, 2017 07:23 - CONCLUSION: Normal examination for a patient of this age. Tsering Poole MD Objective Remarks GENERAL: This is a well-nourished, well-developed patient, in no apparent distress. CARDIOVASCULAR: Regular rate and rhythm RESPIRATORY: Clear to auscultation. Breath sounds equal bilaterally. GASTROINTESTINAL: Abdomen soft, non-tender, nondistended. Normal active bowel sounds MUSCULOSKELETAL: Extremities without clubbing, cyanosis, or edema. NEURO: Alert & Oriented x4 to person, place, time, situation. Moves all ext x4 A/P Problem List: (1) Incarcerated ventral hernia ICD Codes: K46.0 - Unspecified abdominal hernia with obstruction, without gangrene Plan: Incarcerated Ventral Hernia - s/p repair and reduction continue morphine prn for pain advance diet per surgery patient has had BM and is tolerating diet Plan to DC once cleared by surgery lactic acidosis - resolved sepsis by criteria- resolved likely secondary to acute intravascular volume depletion which has resolved zosyn iv: per STOP-IT trial criteria, would need 4 days abx stop date 05/31 Coumadin coagulopathy on admission INR 5.5 patient received vit K repeat INR 1.7 (05/30), 1.5 (05/31) acute kidney injury - resolved. Atrial Fibrillation Lopressor 5mg iv q6h scheduled while NPO. Patient now tolerating PO will resume home metoprolol 12.5 mg PO BID Hypokalemia potassium 3.1 (05/30) replaced with 40 PO x 1 check mag DVT prophlaysis with SCDs anticoagulation management per Dr. Mulligan. Assessment and Plan Patient examined. Assessment and plan formulated with Alexandrea Disla PA-C. I agree with the above. Alexandrea Disla May 31, 2017 14:40 Ranjit Manuel DO Jun 05, 2017 01:00
[2017-05-31] MEDS ORDERED: POTASSIUM CHLORIDE 20 MEQ CONTROLLED RELEASE TAB PO ONE (15:00)
--- NOTE | 2017-05-31 16:47 | RADRPT ---
EXAM DATE/TIME: 05/31/2017 16:10 [facility] COMPARISON: CHEST SINGLE AP, May 28, 2017, 15:25. INDICATIONS : Short of breath. MEDICAL HISTORY : Cardiovascular disease. Gastroesophageal reflux disease. Carcinoma, colon. SURGICAL HISTORY : Colon resection. ENCOUNTER: Subsequent ACUITY: 3 days PAIN SCORE: 1/10 LOCATION: Bilateral chest FINDINGS: A single view of the chest demonstrates interval removal of the nasogastric tube and right IJ central venous catheter. Heart size is prominent. Worsening bibasilar effusions with indistinct interstitial markings suggesting some degree of vascular congestion/mild overload. CONCLUSION: 1. Plain film findings of cardiomegaly with volume overload/failure. 2. Interval removal of the nasogastric tube and right IJ central venous catheter. Jude Tejeda MD on May 31, 2017 at 16:42 Board Certified Radiologist. This report was verified electronically.
[2017-05-31] MEDS: FUROSEMIDE 20 MG/2 ML VIAL IV PUSH SCH (20:51)
[2017-06-01 00:01] VITALS: BP 116/66; PULSE 96; RESP 16; TEMP 97.3; O2SAT 95
[2017-06-01] MEDS: CHLORHEXIDINE GLUCONATE 2 % 1 PACK (2 CLOTHS) TOP SCH (03:12)
[2017-06-01 04:00] VITALS: BP 103/67; PULSE 83; RESP 20; TEMP 96.1; O2SAT 95
[2017-06-01 04:40] LABS: HEMATOCRIT 34.3 % (39.0-51.0); HEMOGLOBIN 11.8 GM/DL (13.0-17.0); MEAN CELL VOLUME 89.7 FL (80.0-100.0); MEAN CORPUSCULAR HEMOGLOBIN 30.9 PG (27.0-34.0); MEAN CORPUSCULAR HGB CONC 34.5 % (32.0-36.0); MEAN PLATELET VOLUME 8.1 FL (7.0-11.0); PLATELET COUNT 325 TH/MM3 (150-450); RED BLOOD COUNT 3.82 MIL/MM3 (4.50-5.90); RED CELL DISTRIBUTION WIDTH 14.2 % (11.6-17.2); WHITE BLOOD COUNT 10.9 TH/MM3 (4.0-11.0)
[2017-06-01 04:42] LABS: INTERNATIONAL NORMALIZED RATIO 1.3 RATIO; PROTHROMBIN TIME - PATIENT 13.5 SEC (9.8-11.6)
[2017-06-01 04:58] LABS: BICARBONATE 26.8 MEQ/L (21.0-32.0); CALCIUM 7.8 MG/DL (8.5-10.1); CREATININE 0.59 MG/DL (0.60-1.30)
[2017-06-01] MEDS: INSULIN NovoLIN REGULAR SUPPLEMENTAL SCALE SQ SCH ×2 (05:24→12:00)
[2017-06-01 08:11] VITALS: BP 107/60; PULSE 100; RESP 18; TEMP 98.4; O2SAT 95
[2017-06-01] MEDS: SODIUM CHLORIDE 0.9% FLUSH 10 ML FLUSH IV FLUSH SCH (09:00)
[2017-06-01] MEDS: FUROSEMIDE 20 MG/2 ML VIAL IV PUSH SCH (11:06)
[2017-06-01] MEDS: FAMOTIDINE 20 MG/2 ML VIAL IV PUSH SCH (11:06)
[2017-06-01] MEDS: METOPROLOL TARTRATE 25 MG TAB PO SCH (11:06)
[2017-06-01 12:00] VITALS: BP 131/82; PULSE 103; RESP 18; TEMP 98.5; O2SAT 97
--- NOTE | 2017-06-01 12:30 | HHI.PR ---
Subjective Remarks C/R Surg POD #2 afebrile, VSS UO good [place] min - dc'd +BM Objective - Vital Signs Date Time Temp Pulse Resp B/P (MAP) Pulse Ox O2 Delivery O2 Flow Rate FiO2 06/01/17 12:00 98.5 103 18 131/82 (98) 97 06/01/17 07:00 Room Air 05/31/17 20:38 21 05/30/17 22:00 3.00 Result Diagram: 06/01/17 0358 06/01/17 0358 Objective Remarks PE alert Abd - soft, wound dry, min tympany A/P Assessment and Plan Imp: OOB decr IVF adv diet diuresis dc plans Jonah Mulligan MD Jun 01, 2017 12:30
[2017-06-01] MEDS: SODIUM CHLOR 0.9% 1000 ML INJ 1,000 ML IV SCH (13:15)
--- NOTE | 2017-06-01 14:27 | HHI.FF ---
Face to Face Verification Diagnosis: (1) Incarcerated ventral hernia Home Health Nursing Order: Medical education Signs/symptoms of disease process Medication education-adverse effect Wound care and dressing changes Nursing assessment with vital signs Instructions: BMP and magnesium level on 06/05/17 I have seen patient Jailene James on 06/01/17. My clinical findings support the need for the requested home health care services because: Ltd mobility - disease progression Deconditioned w/ increased weakness Med compliance is questionable Limited ability to care for self Need for psychosocial assistance I certify that my clinical findings support that this patient is homebound because: Impaired cognitive ability/safety Unsafe to leave home unassisted Need for psychosocial assistance Unable to use public transportation Ranjit Manuel DO Jun 01, 2017 14:27
[2017-06-01] MEDS ORDERED: FURO1TAB62 PO (14:37)
[2017-06-01] MEDS ORDERED: POTA-163 PO (14:37)
--- NOTE | 2017-06-01 14:38 | HHI.DS ---
Discharge Summary Admission Date May 28, 2017 at 08:41 Discharge Date: Jun 01, 2017 Admitting Diagnosis strangulated ventral hernia, SIRS, leukocytosis, lactic acidosis (1) Incarcerated ventral hernia Diagnosis: Principal ICD Codes: K46.0 - Unspecified abdominal hernia with obstruction, without gangrene Consultants Dr. Mulligan, colorectal surgery Dr. Dubois, ICU Procedures Exploratory laparotomy, repair of incarcerated ventral hernia 05/28/[address] Mulligan CBC/BMP: 06/01/17 0358 06/01/17 0358 Significant Findings Laboratory Tests Test 05/30/17 05:00 05/31/17 03:45 06/01/17 03:58 Red Blood Count 3.77 MIL/MM3 (4.50-5.90) 3.68 MIL/MM3 (4.50-5.90) 3.82 MIL/MM3 (4.50-5.90) Hemoglobin 11.7 GM/DL (13.0-17.0) 11.5 GM/DL (13.0-17.0) 11.8 GM/DL (13.0-17.0) Hematocrit 34.3 % (39.0-51.0) 33.5 % (39.0-51.0) 34.3 % (39.0-51.0) Prothrombin Time 16.7 SEC (9.8-11.6) 15.1 SEC (9.8-11.6) 13.5 SEC (9.8-11.6) Blood Urea Nitrogen 20 MG/DL (7-18) Creatinine 0.58 MG/DL (0.60-1.30) 0.46 MG/DL (0.60-1.30) 0.59 MG/DL (0.60-1.30) Total Protein 5.4 GM/DL (6.4-8.2) 5.3 GM/DL (6.4-8.2) Calcium Level 7.3 MG/DL (8.5-10.1) 7.3 MG/DL (8.5-10.1) 7.8 MG/DL (8.5-10.1) Potassium Level 3.2 MEQ/L (3.5-5.1) 3.1 MEQ/L (3.5-5.1) 3.1 MEQ/L (3.5-5.1) Chloride Level 108 MEQ/L (98-107) Protein Corrected Calcium 8.2 MG/DL (8.5-10.1) 8.3 MG/DL (8.5-10.1) Activated Partial Thromboplast Time 33.3 SEC (24.3-30.1) Imaging Last Impressions Chest X-Ray 05/31/17 0000 Signed Impressions: Service Date/Time: Wednesday, May 31, 2017 16:10 - CONCLUSION: 1. Plain film findings of cardiomegaly with volume overload/failure. 2. Interval removal of the nasogastric tube and right IJ central venous catheter. Jude Tejeda MD Abdomen/Pelvis CT 05/28/17 0704 Signed Impressions: Service Date/Time: Sunday, May 28, 2017 07:25 - CONCLUSION: There is a small bowel obstruction secondary to an area of small bowel herniation through an anterior midline abdominal wall defect. Portions of the herniated small bowel are decompressed with abnormal brain of the adjacent fat and appearance of volvulus. Findings are highly concerning for strangulation. There is severe dilation of the stomach with fluid identified within the esophagus and abnormalities identified within the bilateral lower lobes concerning for aspiration.. Tsering Poole MD Head CT 05/28/17 0000 Signed Impressions: Service Date/Time: Sunday, May 28, 2017 07:23 - CONCLUSION: Normal examination for a patient of this age. Tsering Poole MD PE at Discharge GENERAL: This is a well-nourished, well-developed patient, in no apparent distress. CARDIOVASCULAR: Regular rate and rhythm RESPIRATORY: Clear to auscultation. Breath sounds equal bilaterally. GASTROINTESTINAL: Abdomen soft, non-tender, nondistended. Normal active bowel sounds MUSCULOSKELETAL: Extremities without clubbing, cyanosis, or edema. NEURO: Alert & Oriented x4 to person, place, time, situation. Moves all ext x4 Hospital Course Incarcerated Ventral Hernia - Exploratory laparotomy, repair of incarcerated ventral hernia 05/28/[address] Mulligan continue morphine prn for pain advance diet per surgery patient has had BM and is tolerating diet cleared for DC by surgery (06/01) lactic acidosis - resolved sepsis by criteria- resolved likely secondary to acute intravascular volume depletion which has resolved zosyn iv: per STOP-IT trial criteria, would need 4 days abx stop date 05/31 Coumadin coagulopathy on admission INR 5.5 patient received vit K repeat INR 1.7 (05/30), 1.5 (05/31) resume Coumadin at DC acute kidney injury - resolved. Atrial Fibrillation Lopressor 5mg iv q6h scheduled while NPO. Patient now tolerating PO will resume home metoprolol 12.5 mg PO BID Hypokalemia potassium 3.1 (05/30) -> 3.1 (06/01) replaced with 40 PO x 1 mag 2.1 BMP an mag as outpatient on Monday with results to PCP SOB secondary to fluid overload CXR obtained (05/31) reviewed and reveals: cardiomegaly with volume overload/ failure Patient started on Lasix 20 mg IV BID SOB improved Will DC home with Lasik 20 mg PO daily and potassium supplement 20 meq daily BMP an mag as outpatient on Monday with results to PCP DVT prophlaysis with SCDs Pt Condition on Discharge: Stable Discharge Disposition: Disch w/ Home Health Serv Discharge Instructions DIET: Follow Instructions for: As Tolerated, No Restrictions Activities you can perform: See Additionl Instruction Other Activity Instructions: activity per surgery Follow up Referrals: Appointment for Follow Up - 1 Week with Jonah Mulligan MD PCP Follow-up - [address] Cisneros New Medications: Furosemide (Lasix) 20 Mg Tab 20 MG PO DAILY for fluid retention, #7 TAB 0 Refills Potassium Chloride ER (Potassium Chloride ER) 20 Meq Tab 20 MEQ PO DAILY for Electrolyte Replacement, #7 TAB 0 Refills Continued Medications: Doxazosin (Doxazosin) 8 Mg Tab 8 MG PO DAILY, #30 TAB 0 Refills Folic Acid (Folic Acid) 1 Mg Tablet 1 TAB PO DAILY Methotrexate (Methotrexate) 2.5 Mg Tab 10 MG PO Q7D, TAB 0 Refills Metoprolol Tartrate (Metoprolol Tartrate) 25 Mg Tab 12.5 MG PO BID, #60 TAB 0 Refills Warfarin (Warfarin) 4 Mg Tab 8 MG PO DAILY for Blood Clot Prevention, #30 TAB 0 Refills Additional Information Patient examined. Assessment and plan formulated with Alexandrea Disla PA-C. I agree with the above. Alexandrea Disla Jun 01, 2017 14:38 Ranjit Manuel DO Jun 05, 2017 01:00
[2017-06-01] MEDS ORDERED: POTASSIUM CHLORIDE 20 MEQ CONTROLLED RELEASE TAB PO ONE (15:00)
--- NOTE | 2017-06-05 10:00 | MP ---
cc: LUIZA ENGEL M.D. DATE OF SURGERY 05/30/2017 PREOPERATIVE DIAGNOSIS Incarcerated ventral hernia. PROCEDURE Exploratory laparotomy with lysis of adhesions, reduction of ventral hernia and repair of multiple ventral hernias. POSTOPERATIVE DIAGNOSIS 1. Incarcerated multiple ventral hernias. 2. History of colon cancer. SURGEON Dr. Engel. COMPUTER FORENSIC SPECIALIST SURGEON Dr. Koby Juarez. DETAILS OF PROCEDURE The patient was placed in the supine position. After adequate general anesthesia her abdomen was prepped with Betadine solution and draped in the usual sterile fashion. With Dr. Juarez's assistance the abdomen was opened through the previous transverse incision encountering incarcerated hernia in the subcutaneous tissue. The hernia sac was dissected free from the subcutaneous tissue and eventually opened, identifying loops of small bowel stuck in the hernia. These did appear to be a little bit dusky but when they were reduced back into the abdomen they did appear to pink up very nicely with good vascularity. The multiple hernias were opened and additional small bowel was released back into the abdomen. Exploration of the abdomen revealed multiple adhesions which were lysed. The bowel was run from the ligament of Treitz down to the ileocecal valve and felt to be pretty unremarkable. No areas of fixed stricture or narrowing were identified. No evidence of any intra-abdominal cancer was seen. After full mobilization, the subcutaneous flaps were elevated both above and below the transverse incision identifying additional hernia sacs. These were incorporated into the main incision by opening up the fascial bridges. Attenuated fascia was then excised from the edges of the hernia sac. With the hernia sac and attenuated fascia removed there did appear to be adequate fascia remaining both above and below the incision to enable a primary repair. Therefore, the abdominal incision was then closed in two layers using #1 PDS sutures to reapproximate the respective fascial layers of the abdominal wall. At completion there did not appear to be undue tension on the hernia repair. The subcu tissues were irrigated copiously. The subcutaneous tissue was closed in multiple layers using interrupted Vicryl sutures and the skin closed with a row of surgical kasey. The wound area was washed with normal saline and dried, sterile dressing of Telfa and gauze applied. The patient tolerated the procedure quite well and was brought to the recovery room in stable condition. Sponge and needle counts were correct at the end of the procedure. MD RENETTA Marmolejo /4:54 PM /9:49 AM
== END 2017-06-01 15:27 | disposition home health service (06) | DRG 854 ==
LOC: NEPC 06:38 → NEDA 08:41 → N03A 10:54 → N03B 05-31 04:55
PROVIDERS: ADMIT Hospitalist; ATTEND Hospitalist
PROC: 30233K1 Transfusion of Nonautologous Frozen Plasma into Peripheral Vein, Percutaneous Approach (ICD-10-PCS; 2017-05-28)
PROC: 0T9B70Z Drainage of Bladder with Drainage Device, Via Natural or Artificial Opening (ICD-10-PCS; 2017-05-28)
PROC: 0WQF0ZZ Repair Abdominal Wall, Open Approach (ICD-10-PCS; principal; 2017-05-28 12:54)
DX: A41.9 Sepsis, unspecified organism (principal); N17.9 Acute kidney failure, unspecified; E87.2 Acidosis; Z99.81 Dependence on supplemental oxygen; E87.70 Fluid overload, unspecified; K43.6 Other and unspecified ventral hernia with obstruction, without gangrene; I48.91 Unspecified atrial fibrillation; E86.9 Volume depletion, unspecified; I10 Essential (primary) hypertension; K22.70 Barrett's esophagus without dysplasia; R65.20 Severe sepsis without septic shock; G47.30 Sleep apnea, unspecified; K21.9 Gastro-esophageal reflux disease without esophagitis; Z96.653 Presence of artificial knee joint, bilateral; Z85.038 Personal history of other malignant neoplasm of large intestine; Z92.21 Personal history of antineoplastic chemotherapy; M06.9 Rheumatoid arthritis, unspecified; Z79.01 Long term (current) use of anticoagulants; R79.1 Abnormal coagulation profile; E87.6 Hypokalemia; G89.18 Other acute postprocedural pain
CPT/HCPCS: 36430; 43753; 70450; 71045; 74176; 80048; 80053; 81001; 82550; 82805; 82948; 83605; 83690; 83735; 84155; 84484; 85025; 85027; 85610; 85730; 86850; 86900; 86901; 86920; 86927; 87040; 87086; 87641; 93005; 94150; 94640; 94667; 94668; 96361; 96365; 96375; J0330; J0690; J1100; J1170; J1940; J2270; J2370; J2405; J2543; J2710; J3010; J3430; J7030; J7040; J7050; J7120; P9017

== ENCOUNTER 2017-06-03 11:06 | Inpatient (IN) | payer MEDICARE ==
[2017-06-03] VITALS (7 sets, daily range): BP systolic 92–114; BP diastolic 54–69; PULSE 89–101; RESP 15–20; TEMP 97.8–98.2; O2SAT 96–99
[~2017-06-03] VITALS: Ht 170.2 cm; Wt 94.7 kg
[~2017-06-03 11:06] MED LIST changes: -CIPR500T2 PO; +FOLI1TAB6 PO; -FOLI5CAP PO; +FURO1TAB62 PO; -OMEP20TA93 PO; +POTA-163 PO
[2017-06-03] MEDS ORDERED: ONDANSETRON HCL 4 MG/2 ML VIAL IVP ONE (11:45)
[2017-06-03 12:03] LABS: AUTOMATED NEUTROPHIL # 9.3 TH/MM3 (1.8-7.7); BASOPHIL % 0.3 % (0.0-2.0); EOSINOPHIL # 0.1 TH/MM3 (0-0.4); EOSINOPHIL % 0.7 % (0.0-4.0); HEMOGLOBIN 12.2 GM/DL (13.0-17.0); LYMPH % 10.8 % (9.0-44.0); LYMPHOCYTE # 1.3 TH/MM3 (1.0-4.8); MEAN CELL VOLUME 91.3 FL (80.0-100.0); MEAN CORPUSCULAR HEMOGLOBIN 31.1 PG (27.0-34.0); MEAN PLATELET VOLUME 7.6 FL (7.0-11.0); MONO % 10.5 % (0.0-8.0); MONOCYTE # 1.3 TH/MM3 (0-0.9); NEUT % 77.7 % (16.0-70.0); PLATELET COUNT 323 TH/MM3 (150-450); RED BLOOD COUNT 3.94 MIL/MM3 (4.50-5.90); RED CELL DISTRIBUTION WIDTH 14.5 % (11.6-17.2); WHITE BLOOD COUNT 11.9 TH/MM3 (4.0-11.0)
[2017-06-03] MEDS: SODIUM CHLORIDE 0.9% FLUSH 10 ML FLUSH IV FLUSH PRN (12:12)
[2017-06-03] MEDS ORDERED: DIATRIZOATE MEGLUM/DIATRIZOATE SOD 9 ML CUP ONE (12:13)
[2017-06-03 12:21] LABS: ALBUMIN 2.3 GM/DL (3.4-5.0); AST (GOT) 26 U/L (15-37); BICARBONATE 25.6 MEQ/L (21.0-32.0); BLOOD UREA NITROGEN 13 MG/DL (7-18); CALCIUM 7.5 MG/DL (8.5-10.1); CHLORIDE 103 MEQ/L (98-107); CREATININE 0.57 MG/DL (0.60-1.30); GLOMERULAR FILTRATION RATE 137 ML/MIN (>89); GLUCOSE,RANDOM 111 MG/DL (74-106); SODIUM (NA) 136 MEQ/L (136-145)
[2017-06-03 12:22] LABS: ALT (GPT) 16 U/L (12-78)
[2017-06-03 12:25] LABS: ALKALINE PHOSPHATASE 55 U/L (45-117); TOTAL BILIRUBIN ADULT 0.6 MG/DL (0.2-1.0); TOTAL PROTEIN 5.6 GM/DL (6.4-8.2)
[2017-06-03] MEDS ORDERED: WARF4TAB52 PO (12:46)
[2017-06-03] MEDS ORDERED: POTASSIUM CHLORIDE 20 MEQ CONTROLLED RELEASE TAB PO ONE (13:30)
--- NOTE | 2017-06-03 13:54 | PD ---
HPI Chief Complaint: GI Complaint Time Seen by Provider: 11:37 Travel History International Travel<30 days: No Contact w/Intl Traveler<30days: No Traveled to known affect area: No History of Present Illness HPI 81-year-old male complains of diarrhea today. Patient underwent colorectal surgery done by Dr. Mulligan about 1 week prior. He was discharged yesterday. Today he woke up and had liquid diarrhea multiple times. No vomiting or fever. Onset subacute. Severity mild to moderate. PFSH Past Medical History Hx Anticoagulant Therapy: Yes Arthritis: Yes (RA) Atrial Fibrillation: Yes Cancer: Yes (COLON 2004 - TREATED WITH CHEMO & SURGICAL INTERVENTION ) Cardiovascular Problems: Yes Chemotherapy: Yes Diabetes: Yes (BORDERLINE) Patient Takes Glucophage: No Endocrine: No Gastrointestinal Disorders: Yes (BARRETTS ESOPHAGUS, COLON CANCER 2003, ACID REFLUX ) Genitourinary: Yes (BPH; TURP HX; INCOMPLETE BLADDER EMPTYING; URINARY INCONTINENCE) Hepatitis: No Hiatal Hernia: No Hypertension: Yes Immune Disorder: No Medical other: Yes (VENTRAL HERNIA ) Musculoskeletal: Yes (LEFT KNEE REPLACE;RIGHT KNEE ARTHRITIS) Neurologic: Yes (NEUROPATHY BOTH HANDS POST CHEMO) Psychiatric: No Reproductive: No Respiratory: Yes (SLEEP APNEA USES CPAP @ HOME) Immunizations Current: Yes Thyroid Disease: No Tetanus Vaccination: Never Vaccinated Past Surgical History Abdominal Surgery: Yes (COLON RESECTION 2003 , HERNIA REPAIR 05/2017) AICD: No Body Medical Devices: LEFT KNEE Cardiac Surgery: No Ear Surgery: Yes (MASTOID SX X 2 ) Endocrine Surgery: No Eye Surgery: No Genitourinary Surgery: Yes (TURP ) Joint Replacement: Yes (TOTAL LEFT KNEE) Oral Surgery: Yes Pacemaker: No Thoracic Surgery: No Tonsillectomy: Yes Other Surgery: Yes Social History Alcohol Use: Yes (SELDOM) Tobacco Use: No Substance Use: No Allergies-Medications (Allergen,Severity, Reaction): Coded Allergies: aspirin (Unverified Allergy, Severe, 06/03/17) atropine (Unverified Adverse Reaction, Unknown, SEVERE DIARRHEA, 06/03/17) diphenoxylate (Unverified Adverse Reaction, Unknown, SEVERE DIARRHEA, 06/03) Uncoded Allergies: ANTI INFLAMMATORIES (Allergy, Unknown, 10/13/14) Reported Meds & Prescriptions Reported Meds & Active Scripts Active Potassium Chloride ER (Potassium Chloride) 20 Meq Tab 20 Meq PO DAILY Lasix (Furosemide) 20 Mg Tab 20 Mg PO DAILY Reported Warfarin 1 Mg Tab 3 Mg PO DAILY Folic Acid 1 Mg Tablet 1 Tab PO DAILY Metoprolol Tartrate 25 Mg Tab 12.5 Mg PO BID Methotrexate 2.5 Mg Tab 10 Mg PO MONDAY Doxazosin (Doxazosin Mesylate) 8 Mg Tab 8 Mg PO HS Review of Systems Except as stated in HPI: all other systems reviewed are Neg General / Constitutional: No: Fever Physical Exam Narrative GENERAL: 81-year-old male well nourished well developed pleasant Vital Signs Date Time Temp Pulse Resp B/P (MAP) Pulse Ox O2 Delivery O2 Flow Rate FiO2 06/03/17 11:08 98.2 89 16 98/54 (69) 98 SKIN: Warm and dry. HEAD: Atraumatic. Normocephalic. EYES: Pupils equal and round. No scleral icterus. No injection or drainage. ENT: No nasal bleeding or discharge. Mucous membranes pink and moist. NECK: Trachea midline. No JVD. CARDIOVASCULAR: Regular rate and rhythm. RESPIRATORY: No accessory muscle use. Clear to auscultation. Breath sounds equal bilaterally. GASTROINTESTINAL: Soft. No focus of tenderness. There is a well-healed surgical incision across the abdomen well approximated by kasey with minimal erythema and minimal tenderness. MUSCULOSKELETAL: Extremities without clubbing, cyanosis, or edema. No obvious deformities. NEUROLOGICAL: Awake and alert. No obvious cranial nerve deficits. Motor grossly within normal limits. Five out of 5 muscle strength in the arms and legs. Normal speech. PSYCHIATRIC: Appropriate mood and affect; insight and judgment normal. Data Data Last Documented VS Vital Signs Date Time Temp Pulse Resp B/P (MAP) Pulse Ox O2 Delivery O2 Flow Rate FiO2 06/03/17 14:00 92 15 96/56 (69) 99 Room Air 06/03/17 11:08 98.2 Vital signs reviewed Orders Orders Complete Blood Count With Diff (06/03/17 11:32) Comprehensive Metabolic Panel (06/03/17 11:32) Ct Abd/Pel W Iv Contrast(Rout) (06/03/17 11:39) Iv Access Insert/Monitor (06/03/17 11:39) Ecg Monitoring (06/03/17 11:39) Oximetry (06/03/17 11:39) Ondansetron Inj (Zofran Inj) (06/03/17 11:45) Sodium Chloride 0.9% Flush (Ns Flush) (06/03/17 11:45) Oral Contrast - Adult (06/03/17 11:45) Diatrizoate Liq (Md Cardona Liq) (06/03/17 12:13) Potassium Chloride (Kcl) (06/03/17 13:30) Iohexol 350 Inj (Omnipaque 350 Inj) (06/03/17 14:20) Sodium Chlorid 0.9% 500 Ml Inj (Ns 500 M (06/03/17 15:45) Piperacil-Tazo 4.5 Gm Premix (Zosyn 4.5 (06/03/17 15:45) Admit Order (Ed Use Only) (06/03/17 15:41) Labs Laboratory Tests Test 06/03/17 11:35 White Blood Count 11.9 TH/MM3 Red Blood Count 3.94 MIL/MM3 Hemoglobin 12.2 GM/DL Hematocrit 36.0 % Mean Corpuscular Volume 91.3 FL Mean Corpuscular Hemoglobin 31.1 PG Mean Corpuscular Hemoglobin Concent 34.0 % Red Cell Distribution Width 14.5 % Platelet Count 323 TH/MM3 Mean Platelet Volume 7.6 FL Neutrophils (%) (Auto) 77.7 % Lymphocytes (%) (Auto) 10.8 % Monocytes (%) (Auto) 10.5 % Eosinophils (%) (Auto) 0.7 % Basophils (%) (Auto) 0.3 % Neutrophils # (Auto) 9.3 TH/MM3 Lymphocytes # (Auto) 1.3 TH/MM3 Monocytes # (Auto) 1.3 TH/MM3 Eosinophils # (Auto) 0.1 TH/MM3 Basophils # (Auto) 0.0 TH/MM3 CBC Comment DIFF FINAL Differential Comment Blood Urea Nitrogen 13 MG/DL Creatinine 0.57 MG/DL Random Glucose 111 MG/DL Total Protein 5.6 GM/DL Albumin 2.3 GM/DL Calcium Level 7.5 MG/DL Alkaline Phosphatase 55 U/L Aspartate Amino Transf (AST/SGOT) 26 U/L Alanine Aminotransferase (ALT/SGPT) 16 U/L Total Bilirubin 0.6 MG/DL Sodium Level 136 MEQ/L Potassium Level 3.0 MEQ/L Chloride Level 103 MEQ/L Carbon Dioxide Level 25.6 MEQ/L Anion Gap 7 MEQ/L Estimat Glomerular Filtration Rate 137 ML/MIN [facility] Medical Decision Making Medical Screen Exam Complete: Yes Emergency Medical Condition: Yes Medical Record Reviewed: Yes Differential Diagnosis Constipation, Gastritis, Acute Cholecystitis, Biliary Colic, Pancreatitis, BOWMAN , Hepatitis, Bowel Obstruction, Cystitis, Mesenteric Ischemia, AAA, Appendicitis , Renal Stone/Hydronephrosis, GERD, perforated viscous Narrative Course CBC & BMP Diagram 06/03/17 11:35 Total Protein 5.6 L, Albumin 2.3 L, Calcium Level 7.5 L, Alkaline Phosphatase 55 , Aspartate Amino Transf (AST/SGOT) 26, Alanine Aminotransferase (ALT/SGPT) 16, Total Bilirubin 0.6 Potassium replenished Hypokalemia is chronic in nature CT pelvis reveals interval postsurgical features CONCLUSION: 1. Interval postsurgical features of anterior abdominal wall hernia repair with associated inflammatory change and 2 small soft tissue collections which may reflect postsurgical hematoma/seroma, as above. Developing abscess cannot be excluded. 2. Findings consistent with partial small bowel obstruction extending to the left lower quadrant, potentially due to adhesions. No bowel perforation or abscess at this time. Trace free fluid in the deep pelvis may be postsurgical. 3. Small bilateral, right greater then left, pleural effusions with associated compressive atelectasis at the lung bases. 4. Stable 11 mm wedge-shaped subpleural nodular opacity at the right lung base. Consider followup examination in 3-6 months to document stability/resolution. 5. Remainder of exam is unchanged. Case d/w Dr Palomares who asked for patient to be admitted under his service. Pt agreeable with plan. Diagnosis Primary Impression: Partial small bowel obstruction Additional Impressions: Abscess Diarrhea Qualified Codes: R19.7 - Diarrhea, unspecified Admitting Information Admitting Physician Requests: Admit Chato Scott MD Jun 03, 2017 13:53
[2017-06-03] MEDS ORDERED: IOHEXOL 350 MG/ML 10 ML VIAL (for RAD DIAG) IVCONTRAST ONE (14:20)
--- NOTE | 2017-06-03 15:03 | RADRPT ---
EXAM DATE/TIME: 06/03/2017 14:20 [facility] COMPARISON: CT ABDOMEN & PELVIS W CONTRAST, June 11, 2016, 13:02. INDICATIONS : Diarrhea and lower abdomen pain today. IV CONTRAST: 98 cc Omnipaque 350 (iohexol) IV ORAL CONTRAST: Prescribed oral contrast ingested. RADIATION DOSE: 16.17 CTDIvol (mGy) MEDICAL HISTORY : Carcinoma, colon. Hypertension. SURGICAL HISTORY : None. ENCOUNTER: Initial ACUITY: 1 day PAIN SCALE: 7/10 LOCATION: Bilateral lower quadrant TECHNIQUE: Volumetric scanning of the abdomen and pelvis was performed. Using automated exposure control and ad justment of the mA and/or kV according to patient size, radiation dose was kept as low as reasonably achievable to obtain optimal diagnostic quality images. DICOM format image data is available electro nically for review and comparison. FINDINGS: LOWER LUNGS: Interval progression of small bilateral, right greater left lower effusions at the lung bases with as sociated presumed compressive atelectasis. There is a stable 11 mm wedge-shaped subpleural nodular op acity at the right lung base. LIVER: Homogeneous density without lesion. There is no dilation of the biliary tree. No calcified gallston es. SPLEEN: Normal size without lesion. PANCREAS: Within normal limits. KIDNEYS: Stable in appearance. Redemonstration of 2-3 mm nonobstructing calyceal calculi in the mid right and left kidneys. Bilateral simple appearing cysts unchanged from prior exam. No hydronephrosis or signif icant interval change. ADRENAL GLANDS: Within normal limits. VASCULAR: Scattered atherosclerotic calcifications without aneurysm. BOWEL/MESENTERY: Large hiatal hernia containing a large portion of the stomach. Postsurgical features of partial colec khadijah with anastomosis likely in the mid abdomen. Interval repair of anterior abdominal wall hernia wi th significant inflammatory change and small focal air in the abdominal soft tissues. Small collectio ns measuring 2.3 x 4.4 1.8 x 2.3 cm are also noted. There are dilated fluid-filled loops of small bow el extending to the left lower quadrant region with diffuse mesenteric stranding. More distally, ther e are loops of nondistended ileum. No focal drainable fluid collection at this time. No free air. Sma ller free fluid in the pelvis. RETROPERITONEUM: There is no lymphadenopathy. BLADDER: No wall thickening or mass. REPRODUCTIVE: Within normal limits. INGUINAL: There is no lymphadenopathy or hernia. MUSCULOSKELETAL: Within normal limits for patient age. CONCLUSION: 1. Interval postsurgical features of anterior abdominal wall hernia repair with associated inflammato ry change and 2 small soft tissue collections which may reflect postsurgical hematoma/seroma, as abov e. Developing abscess cannot be excluded. 2. Findings consistent with partial small bowel obstruction extending to the left lower quadrant, pot entially due to adhesions. No bowel perforation or abscess at this time. Trace free fluid in the deep pelvis may be postsurgical. 3. Small bilateral, right greater then left, pleural effusions with associated compressive atelectasi s at the lung bases. 4. Stable 11 mm wedge-shaped subpleural nodular opacity at the right lung base. Consider followup exa mination in 3-6 months to document stability/resolution. 5. Remainder of exam is unchanged. Josh Motta MD on June 03, 2017 at 14:45 Board Certified Radiologist. This report was verified electronically.
[2017-06-03] MEDS ORDERED: PIPERACIL-TAZO 4.5 GM PREMIX 100 ML IV ONE (15:45)
[2017-06-03] MEDS ORDERED: SODIUM CHLORID 0.9% 500 ML INJ 500 ML IV ONE (15:45)
--- NOTE | 2017-06-03 17:30 | MH ---
cc: Amisha RICHMOND DATE OF ADMISSION 06/03/2017 CHIEF COMPLAINT Diarrhea. HISTORY OF PRESENT ILLNESS This patient was admitted to the hospital six days ago and found to have a small bowel obstruction due to an incarcerated ventral hernia. The patient had a colectomy for carcinoma many years ago with Dr. Mulligan and developed this small bowel obstruction a week ago. He underwent emergent repair of the ventral hernia. There was no bowel resection done at the time of that surgery, as there was no ischemic segment of bowel. Postoperatively, the patient did well. He did have some congestive heart failure, ended up having some odd diuresis with Lasix and he was sent home with oral Lasix and potassium. The patient was to follow up with Dr. Mulligan in the office early this coming week. However, he developed more in the way of diarrhea last night and became concerned. He called the home health agency and they told him to come to the emergency department. They did not call our office. The patient was seen in the emergency department and had some mild sinus tachycardia. He had some mild redness in his wound and a CT scan of the abdomen and pelvis was done. Basically, the CT scan of the abdomen and pelvis, as reviewed by me, showed two little fluid collections in the subcutaneous tissue. He also had one dilated loop of small bowel, which is likely ileus as he is certainly not obstructed with the amount of diarrhea that he is having now. He is six days postoperative. It is not unusual to have diarrhea postoperatively. He did receive antibiotics in the hospital, so it is entirely possible that he has pseudomembranous colitis as well. PAST MEDICAL HISTORY, SOCIAL HISTORY AND FAMILY HISTORY, REVIEW OF SYSTEMS Otherwise negative. PHYSICAL EXAMINATION GENERAL: Well-developed elderly male in no acute distress. SKIN: Warm and dry. HEENT: Extraocular muscles intact. NECK: Supple ABDOMEN: Soft, nondistended, nontender. No masses. No peritoneal signs. He does have wound redness, especially on the left side. He feels it is due to irritation from running back and forth to the bathroom and pulling his pants up. He does still have kasey intact and has some redness at the staple sites. A Q-tip was placed in the left wound after removing several kasey and the wound was prepped with Chloraprep and then a sterile Q-tip was placed in the subcutaneous tissue. There was a seroma present. There was no odor to the discharge and I did send it for culture and sensitivity and gram stain. I also took several kasey out of the left corner and there was no fluid at all present there. A dressing was then applied. RECTAL: Exam was not done. EXTREMITIES: Range of motion within normal limits. He did have edema in his lower extremities. NEUROLOGIC: Grossly normal. IMPRESSION Probable normal postoperative diarrhea after resolution of ileus from his laparotomy six days ago, although of course it could be infectious diarrhea such as pseudomembranous colitis. PLAN I am going to admit him to the hospital. Give him IV fluids. Stop all of his antibiotics as they are of no help for a wound infection, if indeed he has one. I will empirically start him on Flagyl and we will follow his intake and output and continue his diuresis, as he still remains 10 or 15 pounds overweight from his admission weight. I have explained all this to the family and they understand. I will see him tomorrow as well. MD TIFFANI French/ /4:50 PM /5:18 PM
[2017-06-03 19:03] LABS: INTERNATIONAL NORMALIZED RATIO 1.6 RATIO; PROTHROMBIN TIME - PATIENT 15.8 SEC (9.8-11.6)
[2017-06-03] MEDS: D5-LR + KCL 20 MEQ INJ 1,000 ML IV SCH (19:14)
[2017-06-03] MEDS: POTASSIUM CHLOR 20 MEQ PREMIX 100 ML IV SCH ×2 (19:14→22:14)
[2017-06-03] MEDS ORDERED: DIPHENOXYLATE/ATROPINE 2.5 MG/0.025 MG TAB PO PRN (19:45)
[2017-06-03] MEDS: DOXAZOSIN MESYLATE 4 MG TAB PO SCH (20:00)
[2017-06-03] MEDS: FUROSEMIDE 20 MG/2 ML VIAL IV PUSH SCH (20:00)
[2017-06-03] MEDS: METOPROLOL TARTRATE 25 MG TAB PO SCH (20:00)
[2017-06-03] MEDS: metroNIDAZOLE 500 MG TAB PO SCH (21:29)
[2017-06-04] VITALS (7 sets, daily range): BP systolic 96–113; BP diastolic 57–65; PULSE 88–108; RESP 17–18; TEMP 96.1–98.9; O2SAT 94–99
[2017-06-04] MEDS: metroNIDAZOLE 500 MG TAB PO SCH ×3 (04:54→21:02)
[2017-06-04] MEDS: FUROSEMIDE 20 MG/2 ML VIAL IV PUSH SCH ×2 (08:14→20:54)
[2017-06-04] MEDS: METOPROLOL TARTRATE 25 MG TAB PO SCH ×2 (08:15→20:53)
[2017-06-04 10:31] LABS: AUTOMATED NEUTROPHIL # 7.5 TH/MM3 (1.8-7.7); BASOPHIL % 0.4 % (0.0-2.0); EOSINOPHIL # 0.1 TH/MM3 (0-0.4); EOSINOPHIL % 0.8 % (0.0-4.0); HEMATOCRIT 34.1 % (39.0-51.0); HEMOGLOBIN 11.8 GM/DL (13.0-17.0); LYMPH % 9.1 % (9.0-44.0); LYMPHOCYTE # 0.9 TH/MM3 (1.0-4.8); MEAN CELL VOLUME 90.1 FL (80.0-100.0); MEAN CORPUSCULAR HEMOGLOBIN 31.2 PG (27.0-34.0); MEAN CORPUSCULAR HGB CONC 34.7 % (32.0-36.0); MEAN PLATELET VOLUME 7.6 FL (7.0-11.0); MONO % 9.3 % (0.0-8.0); MONOCYTE # 0.9 TH/MM3 (0-0.9); NEUT % 80.4 % (16.0-70.0); PLATELET COUNT 316 TH/MM3 (150-450); RED BLOOD COUNT 3.78 MIL/MM3 (4.50-5.90); RED CELL DISTRIBUTION WIDTH 14.4 % (11.6-17.2); WHITE BLOOD COUNT 9.4 TH/MM3 (4.0-11.0)
[2017-06-04 10:45] LABS: INTERNATIONAL NORMALIZED RATIO 1.9 RATIO; PROTHROMBIN TIME - PATIENT 19.4 SEC (9.8-11.6)
[2017-06-04 10:52] LABS: BICARBONATE 29.2 MEQ/L (21.0-32.0); CALCIUM 7.5 MG/DL (8.5-10.1); CREATININE 0.58 MG/DL (0.60-1.30)
--- NOTE | 2017-06-04 10:53 | HHI.PR ---
Subjective Remarks Pt and are upset over diarrhea. Explained that C. Diff toxin is negative and this is somewhat normal after Ileus resolution post op. Also compounded by oral contrast given for CT scan. Otherwise eating well. Does not want to go home with diarrhea. Will begin scheduled Imodium today. since C. Diff is negative. Objective Vital Signs Date Time Temp Pulse Resp B/P (MAP) Pulse Ox O2 Delivery O2 Flow Rate FiO2 06/04/17 08:00 97.6 107 17 108/65 (79) 94 06/04/17 04:27 97.5 88 18 99/58 (72) 98 06/04/17 04:00 98 06/04/17 00:16 98.5 108 17 96/57 (70) 96 06/03/17 23:59 98 06/03/17 21:03 101 06/03/17 20:32 97.8 96 18 114/62 (79) 96 06/03/17 14:00 92 15 96/56 (69) 99 Room Air 06/03/17 13:00 90 18 95/66 (76) 99 Room Air 06/03/17 12:00 92 20 92/69 (77) 97 Room Air 06/03/17 11:08 98.2 89 16 98/54 (69) 98 I/O 06/03/17 06/03/17 06/03/17 06/04/17 06/04/17 06/04/17 07:00 15:00 23:00 07:00 15:00 23:00 Intake Total 700 ml 880 ml Balance 700 ml 880 ml Intake Oral 780 ml IV Total 700 ml 100 ml # Voids 4 # Bowel Movements 4 Result Diagram: 06/04/17 1003 06/03/17 1135 Objective Remarks VS-S Abd: Left side of incision definitely red, but may be hui to kasey. No drainage where I removed a few kasey. Gram stain negative. I&Os- outputs not being recorded. Will reorder. Labs-OK Assessment and Plan Assessment and Plan Diarrhea post op probably will resolve Start Imodium. Monitor I&Os. Tony Mcclain MD Jun 04, 2017 10:53
[2017-06-04] MEDS: LOPERAMIDE HCL 2 MG CAP PO SCH ×3 (11:33→23:56)
[2017-06-04] MEDS ORDERED: WARF-58 PO (11:37)
[2017-06-04] MEDS ORDERED: WARF-23 PO (11:37)
[2017-06-04] MEDS: POTASSIUM CHLORIDE 10 MEQ CONTROLLED RELEASE TAB PO SCH ×2 (11:42→20:54)
[2017-06-04] MEDS: D5-LR + KCL 20 MEQ INJ 1,000 ML IV SCH (11:43)
[2017-06-04] MEDS ORDERED: VANCOMYCIN 1,000 MG/NS 250 ML IV ONE ×2 (14:15)
[2017-06-04] MEDS ORDERED: Vancomycin Consult Pharmacy 1 EA OTHER SCH (14:15)
[2017-06-04] MEDS ORDERED: VANCOMYCIN 500 MG/NS 100 ML IV ONE ×2 (14:30)
[2017-06-04] MEDS: DOXAZOSIN MESYLATE 4 MG TAB PO SCH (20:53)
[2017-06-05] VITALS (9 sets, daily range): BP systolic 95–153; BP diastolic 53–70; PULSE 72–115; RESP 17–20; TEMP 97.2–99.6; O2SAT 94–97
[2017-06-05] MEDS: metroNIDAZOLE 500 MG TAB PO SCH ×3 (06:10→20:54)
[2017-06-05] MEDS: LOPERAMIDE HCL 2 MG CAP PO SCH ×3 (06:10→17:47)
[2017-06-05] MEDS: METOPROLOL TARTRATE 25 MG TAB PO SCH ×2 (08:49→20:59)
[2017-06-05] MEDS: POTASSIUM CHLORIDE 10 MEQ CONTROLLED RELEASE TAB PO SCH ×2 (08:50→20:54)
[2017-06-05] MEDS: FUROSEMIDE 20 MG/2 ML VIAL IV PUSH SCH ×2 (08:50→20:52)
[2017-06-05 09:59] LABS: AUTOMATED NEUTROPHIL # 8.4 TH/MM3 (1.8-7.7); BASOPHIL % 0.3 % (0.0-2.0); EOSINOPHIL # 0.1 TH/MM3 (0-0.4); HEMATOCRIT 34.9 % (39.0-51.0); LYMPH % 11.4 % (9.0-44.0); LYMPHOCYTE # 1.2 TH/MM3 (1.0-4.8); MEAN CELL VOLUME 90.6 FL (80.0-100.0); MEAN CORPUSCULAR HEMOGLOBIN 31.1 PG (27.0-34.0); MEAN CORPUSCULAR HGB CONC 34.3 % (32.0-36.0); MEAN PLATELET VOLUME 7.5 FL (7.0-11.0); MONOCYTE # 0.7 TH/MM3 (0-0.9); NEUT % 80.3 % (16.0-70.0); PLATELET COUNT 325 TH/MM3 (150-450); RED BLOOD COUNT 3.85 MIL/MM3 (4.50-5.90); RED CELL DISTRIBUTION WIDTH 14.8 % (11.6-17.2); WHITE BLOOD COUNT 10.4 TH/MM3 (4.0-11.0)
[2017-06-05] MEDS: D5-LR + KCL 20 MEQ INJ 1,000 ML IV SCH (10:14)
[2017-06-05 10:26] LABS: BICARBONATE 27.6 MEQ/L (21.0-32.0); CALCIUM 7.9 MG/DL (8.5-10.1); CREATININE 0.61 MG/DL (0.60-1.30)
[2017-06-05 10:29] LABS: RANDOM VANCOMYCIN 3.6 COMMENT
[2017-06-05] MEDS: VANCOMYCIN INJ 1,250 MG in SODIUM CHLOR 0.9% 250 ML INJ 250 ML IV SCH (13:52)
--- NOTE | 2017-06-05 19:05 | HHI.FF ---
Face to Face Verification Diagnosis: (1) Incarcerated ventral hernia Physical Therapy Order: Evaluate and Treat, Improve ambulation, Strength and gait training Home Health Nursing Order: Signs/symptoms of disease process Medication education-adverse effect Wound care and dressing changes I have seen patient Jailene James on 06/05/17. My clinical findings support the need for the requested home health care services because: Ltd mobility - disease progression Patient has SOB Deconditioned w/ increased weakness Limited ability to care for self High risk of falls Infection w/ risk of complications I certify that my clinical findings support that this patient is homebound because: Post-op weakness Unsteady gait/balance Unable to use public transportation Poor cardiac reserve Jonah Mulligan MD Jun 05, 2017 19:05
[2017-06-05] MEDS: DOXAZOSIN MESYLATE 4 MG TAB PO SCH (20:53)
[2017-06-05] MEDS: SODIUM CHLORIDE 0.9% FLUSH 10 ML FLUSH IV FLUSH PRN (20:56)
--- NOTE | 2017-06-05 22:29 | HHI.PR ---
Subjective Remarks C/R surg afebrile, VSS PO Good less diarrhea Objective - Vital Signs Date Time Temp Pulse Resp B/P (MAP) Pulse Ox O2 Delivery O2 Flow Rate FiO2 06/05/17 20:36 97.6 104 18 104/55 (71) 94 06/03/17 14:00 Room Air Result Diagram: 06/05/1737 06/05/17 0937 Objective Remarks PE alert Abd - soft, wound opened, packed, small amout serous fluid A/P Assessment and Plan Imp: wound care cont PO decr IVF dc plans home care Jonah Mulligan MD Jun 05, 2017 22:29
[2017-06-06] VITALS: BP 108/65; PULSE 94; RESP 20; TEMP 97.8; O2SAT 96
[2017-06-06] MEDS: LOPERAMIDE HCL 2 MG CAP PO SCH ×4 (00:25→17:52)
[2017-06-06] MEDS: VANCOMYCIN INJ 1,250 MG in SODIUM CHLOR 0.9% 250 ML INJ 250 ML IV SCH ×2 (01:58→12:42)
[2017-06-06] MEDS: metroNIDAZOLE 500 MG TAB PO SCH ×2 (05:49→12:43)
[2017-06-06] MEDS: D5-LR + KCL 20 MEQ INJ 1,000 ML IV SCH ×2 (06:00→08:40)
[2017-06-06 08:00] VITALS: BP 112/66; PULSE 86; RESP 20; TEMP 96.6; O2SAT 94
[2017-06-06] MEDS: POTASSIUM CHLORIDE 10 MEQ CONTROLLED RELEASE TAB PO SCH (08:39)
[2017-06-06] MEDS: METOPROLOL TARTRATE 25 MG TAB PO SCH (08:39)
[2017-06-06] MEDS: FUROSEMIDE 20 MG/2 ML VIAL IV PUSH SCH (08:40)
[2017-06-06 12:00] VITALS: BP 98/56; PULSE 67; RESP 18; TEMP 97.9; O2SAT 95
[2017-06-06 16:00] VITALS: BP 113/65; PULSE 90; RESP 18; TEMP 97; O2SAT 97
[2017-06-07] MEDS ORDERED: PHARMACY ORDERED LAB ONE (00:45)
== END 2017-06-06 20:02 | disposition home health service (06) | DRG 389 ==
LOC: NEPC 11:06 → NEDA 15:43 → N07B 18:34
PROVIDERS: ADMIT Colon & Rectal Surgery; ATTEND Colon & Rectal Surgery
DX: K56.7 Ileus, unspecified (principal); L76.34 Postprocedural seroma of skin and subcutaneous tissue following other procedure; I11.0 Hypertensive heart disease with heart failure; I50.9 Heart failure, unspecified; I48.91 Unspecified atrial fibrillation; E87.6 Hypokalemia; E66.3 Overweight; G47.30 Sleep apnea, unspecified; R00.0 Tachycardia, unspecified; Y83.8 Other surgical procedures as the cause of abnormal reaction of the patient, or of later complication, without mention of misadventure at the time of the procedure; R73.03 Prediabetes; K21.9 Gastro-esophageal reflux disease without esophagitis; M06.9 Rheumatoid arthritis, unspecified; K22.70 Barrett's esophagus without dysplasia; M17.11 Unilateral primary osteoarthritis, right knee; Z96.652 Presence of left artificial knee joint; N40.0 Benign prostatic hyperplasia without lower urinary tract symptoms; R19.7 Diarrhea, unspecified; Z90.49 Acquired absence of other specified parts of digestive tract; Z85.038 Personal history of other malignant neoplasm of large intestine
CPT/HCPCS: 74177; 80048; 80053; 80202; 85025; 85610; 86403; 87070; 87147; 87186; 87205; 87493; 96374; J1940; J2405; J2543; J3370; J3480; J7040; J7050; Q9963; Q9967

== ENCOUNTER 2017-06-30 12:15 | Observation (INO) | payer MEDICARE ==
[2017-06-30] VITALS (8 sets, daily range): BP systolic 111–125; BP diastolic 56–72; PULSE 81–99; RESP 18; TEMP 97.4–98.8; O2SAT 95–98
[~2017-06-30] VITALS: Ht 172.7 cm; Wt 87.0 kg
[~2017-06-30 12:15] MED LIST changes: -WARF-20 PO; +WARF-23 PO; +WARF-58 PO; +WARF4TAB52 PO
--- NOTE | 2017-06-30 12:41 | PD ---
HPI Chief Complaint: Chest Pain Time Seen by Provider: 12:27 Travel History International Travel<30 days: No Contact w/Intl Traveler<30days: No Traveled to known affect area: No History of Present Illness HPI This patient complains of chest pain. The location is right upper chest. Started 830 this morning. He has a few spells a lasted just a few minutes and resolved. Symptoms were nonexertional. He is currently pain-free. He denies history of coronary artery disease. He says he does have some CHF. He is not short of breath or having fever or productive cough. He recently had some abdominal surgery but seems to be recovering well from that. No alleviating factors. No exacerbating factors. Duration one day severity was moderate PFSH Past Medical History Hx Anticoagulant Therapy: Yes Arthritis: Yes (RA) Atrial Fibrillation: Yes Cancer: No Cardiovascular Problems: Yes (CHF) Chemotherapy: No Diabetes: Yes (BORDERLINE) Endocrine: No Gastrointestinal Disorders: Yes (BARRETTS ESOPHAGUS, COLON CANCER 2003, ACID REFLUX ) Genitourinary: Yes (BPH; TURP HX; INCOMPLETE BLADDER EMPTYING; URINARY INCONTINENCE) Hepatitis: No Hiatal Hernia: No Hypertension: Yes Immune Disorder: No Musculoskeletal: Yes (LEFT KNEE REPLACE;RIGHT KNEE ARTHRITIS) Neurologic: Yes (right sided-weakness) Psychiatric: No Reproductive: No Respiratory: Yes (SLEEP APNEA USES CPAP @ HOME) Immunizations Current: Yes Thyroid Disease: No Past Surgical History Abdominal Surgery: Yes (gall bladder) AICD: No Body Medical Devices: LEFT KNEE Cardiac Surgery: No Ear Surgery: Yes (MASTOID SX X 2 ) Endocrine Surgery: No Eye Surgery: No Genitourinary Surgery: Yes Joint Replacement: No Oral Surgery: Yes (Jaw bone removed) Pacemaker: No Thoracic Surgery: No Tonsillectomy: Yes Other Surgery: Yes Social History Alcohol Use: Yes (SELDOM) Tobacco Use: No Substance Use: No Allergies-Medications (Allergen,Severity, Reaction): Coded Allergies: aspirin (Unverified Allergy, Severe, 06/30/17) atropine (Unverified Adverse Reaction, Unknown, SEVERE DIARRHEA, 06/30/17) diphenoxylate (Unverified Adverse Reaction, Unknown, SEVERE DIARRHEA, 06/30) Uncoded Allergies: ANTI INFLAMMATORIES (Allergy, Unknown, 10/13/14) Reported Meds & Prescriptions Reported Meds & Active Scripts Active Potassium Chloride ER (Potassium Chloride) 20 Meq Tab 20 Meq PO DAILY Lasix (Furosemide) 20 Mg Tab 20 Mg PO DAILY Reported Cephalexin 250 Mg Cap 250 Mg PO Q6H Doxazosin (Doxazosin Mesylate) 4 Mg Tab 4 Mg PO DAILY Warfarin 4 Mg Tab 4 Mg PO DAILY Folic Acid 1 Mg Tablet 1 Tab PO DAILY Metoprolol Tartrate 25 Mg Tab 12.5 Mg PO BID Methotrexate 2.5 Mg Tab 10 Mg PO MONDAY Review of Systems General / Constitutional: No: Fever Eyes: No: Visual changes HENT: No: Headaches Cardiovascular: Positive: Chest Pain or Discomfort Respiratory: No: Shortness of Breath Gastrointestinal: No: Abdominal Pain Genitourinary: No: Dysuria Musculoskeletal: No: Pain Skin: No Rash Neurologic: No: Weakness Psychiatric: No: Depression Endocrine: No: Polydipsia Hematologic/Lymphatic: No: Easy Bruising Physical Exam Narrative GENERAL: Well-nourished, well-developed patient in no apparent distress. SKIN: Focused skin assessment reveals no rash and nodules. Skin is Warm and dry. HEAD: Atraumatic. Normocephalic. EYES: Pupils equal and round. No scleral icterus. No injection or drainage. ENT: No nasal bleeding or discharge. Mucous membranes pink and moist. NECK: Trachea midline. No JVD. CARDIOVASCULAR: Regular rate and rhythm. No murmur appreciated. RESPIRATORY: No accessory muscle use. Clear to auscultation. Breath sounds equal bilaterally. GASTROINTESTINAL: Abdomen soft, non-tender, nondistended. Hepatic and splenic margins not palpable. His large abdominal pannus with a healing wound by secondary intent. There is no sign of infection there. The wound looks clean MUSCULOSKELETAL: No obvious deformities. No clubbing. No cyanosis. No edema. NEUROLOGICAL: Awake and alert. No obvious cranial nerve deficits. Motor grossly within normal limits. Normal speech. PSYCHIATRIC: Appropriate mood and affect; insight and judgment normal. Data Data Last Documented VS Vital Signs Date Time Temp Pulse Resp B/P (MAP) Pulse Ox O2 Delivery O2 Flow Rate FiO2 06/30/17 12:51 95 Room Air 06/30/17 12:20 97.4 81 18 112/69 (83) Orders Orders Electrocardiogram (06/30/17 12:35) Basic Metabolic Panel (Bmp) (06/30/17 12:35) Ckmb (Isoenzyme) Profile (06/30/17 12:35) Complete Blood Count With Diff (06/30/17 12:35) Prothrombin Time / Inr (Pt) (06/30/17 12:35) Act Partial Throm Time (Ptt) (06/30/17 12:35) Troponin I (06/30/17 12:35) Chest, Single Ap (06/30/17 12:35) Ecg Monitoring (06/30/17 12:35) Iv Access Insert/Monitor (06/30/17 12:35) Oximetry (06/30/17 12:35) Sodium Chloride 0.9% Flush (Ns Flush) (06/30/17 12:45) Labs Laboratory Tests Test 06/30/17 12:45 White Blood Count 5.6 TH/MM3 Red Blood Count 3.93 MIL/MM3 Hemoglobin 11.6 GM/DL Hematocrit 34.9 % Mean Corpuscular Volume 88.8 FL Mean Corpuscular Hemoglobin 29.5 PG Mean Corpuscular Hemoglobin Concent 33.2 % Red Cell Distribution Width 15.1 % Platelet Count 389 TH/MM3 Mean Platelet Volume 7.4 FL Neutrophils (%) (Auto) 56.1 % Lymphocytes (%) (Auto) 28.7 % Monocytes (%) (Auto) 12.6 % Eosinophils (%) (Auto) 1.6 % Basophils (%) (Auto) 1.0 % Neutrophils # (Auto) 3.1 TH/MM3 Lymphocytes # (Auto) 1.6 TH/MM3 Monocytes # (Auto) 0.7 TH/MM3 Eosinophils # (Auto) 0.1 TH/MM3 Basophils # (Auto) 0.1 TH/MM3 CBC Comment DIFF FINAL Differential Comment Prothrombin Time 58.6 SEC Prothromb Time International Ratio 5.9 RATIO Activated Partial Thromboplast Time 58.5 SEC Blood Urea Nitrogen 9 MG/DL Creatinine 0.63 MG/DL Random Glucose 95 MG/DL Calcium Level 8.7 MG/DL Sodium Level 137 MEQ/L Potassium Level 4.0 MEQ/L Chloride Level 102 MEQ/L Carbon Dioxide Level 28.2 MEQ/L Anion Gap 7 MEQ/L Estimat Glomerular Filtration Rate 122 ML/MIN Total Creatine Kinase 41 U/L Troponin I LESS THAN 0.02 NG/ML MDM Medical Decision Making Medical Screen Exam Complete: Yes Emergency Medical Condition: Yes Medical Record Reviewed: Yes Differential Diagnosis Differential diagnosis includes GA, angina, pericarditis, pleurisy, GERD, anxiety. Narrative Course I have reviewed the patient's electronic medical record. Reviewed his discharge summary from Dr. Mulligan from last month Patient having some atypical chest pain. I have ordered a workup to evaluate I reviewed his EKG which shows sinus rhythm and no acute ST elevation I reviewed his chest x-ray shows minimal bilateral infiltrate versus atelectasis Labs sent He reports allergy to aspirin Cardiac enzymes are negative Patient will require telemetry observation for his chest pain. Is atypical. I reviewed with Dr. Manuel Diagnosis Primary Impression: Chest pain at rest Additional Impressions: H/O malignant neoplasm of colon Delayed surgical wound healing Qualified Codes: T81.89XA - Other complications of procedures, not elsewhere classified, initial encounter Admitting Information Admitting Physician Requests: Observation Cristino Swanson MD Jun 30, 2017 12:41
[2017-06-30] MEDS ORDERED: SODIUM CHLORIDE 0.9% FLUSH 10 ML FLUSH IVF PRN (12:45)
[2017-06-30 12:59] LABS: AUTOMATED NEUTROPHIL # 3.1 TH/MM3 (1.8-7.7); BASOPHIL # 0.1 TH/MM3 (0-0.2); EOSINOPHIL # 0.1 TH/MM3 (0-0.4); EOSINOPHIL % 1.6 % (0.0-4.0); HEMATOCRIT 34.9 % (39.0-51.0); HEMOGLOBIN 11.6 GM/DL (13.0-17.0); LYMPH % 28.7 % (9.0-44.0); LYMPHOCYTE # 1.6 TH/MM3 (1.0-4.8); MEAN CELL VOLUME 88.8 FL (80.0-100.0); MEAN CORPUSCULAR HEMOGLOBIN 29.5 PG (27.0-34.0); MEAN CORPUSCULAR HGB CONC 33.2 % (32.0-36.0); MEAN PLATELET VOLUME 7.4 FL (7.0-11.0); MONO % 12.6 % (0.0-8.0); MONOCYTE # 0.7 TH/MM3 (0-0.9); NEUT % 56.1 % (16.0-70.0); PLATELET COUNT 389 TH/MM3 (150-450); RED BLOOD COUNT 3.93 MIL/MM3 (4.50-5.90); RED CELL DISTRIBUTION WIDTH 15.1 % (11.6-17.2); WHITE BLOOD COUNT 5.6 TH/MM3 (4.0-11.0)
[2017-06-30 13:08] LABS: INTERNATIONAL NORMALIZED RATIO 5.9 RATIO; PROTHROMBIN TIME - PATIENT 58.6 SEC (9.8-11.6)
[2017-06-30 13:17] LABS: BICARBONATE 28.2 MEQ/L (21.0-32.0); BLOOD UREA NITROGEN 9 MG/DL (7-18); CALCIUM 8.7 MG/DL (8.5-10.1); CHLORIDE 102 MEQ/L (98-107); CREATININE 0.63 MG/DL (0.60-1.30); GLOMERULAR FILTRATION RATE 122 ML/MIN (>89); GLUCOSE,RANDOM 95 MG/DL (74-106); SODIUM (NA) 137 MEQ/L (136-145)
[2017-06-30 13:21] LABS: TROPONIN I LESS THAN 0.02 NG/ML (0.02-0.05)
--- NOTE | 2017-06-30 13:41 | RADRPT ---
EXAM DATE/TIME: 06/30/2017 13:00 [facility] COMPARISON: CHEST SINGLE AP, May 31, 2017, 16:10. INDICATIONS : Chest pain. MEDICAL HISTORY : Congestive heart failure. Cardiovascular disease. Gastroesophageal reflux disease. Carcinoma, c olon. SURGICAL HISTORY : Colon resection. ENCOUNTER: Initial ACUITY: 1 day PAIN SCORE: 3/10 LOCATION: Right chest FINDINGS: The heart is enlarged. Minimal bibasilar patchiness is noted consistent with atelectasis and/or infil trates. No pulmonary edema is noted. CONCLUSION: 1. Minimal bibasilar patchiness consistent with atelectasis and/or infiltrates. 2. Cardiomegaly. Thong Javed MD on June 30, 2017 at 13:38 Board Certified Radiologist. This report was verified electronically.
[2017-06-30] MEDS ORDERED: WARF-20 PO (13:50)
[2017-06-30] MEDS ORDERED: CEPH250C PO (13:50)
[2017-06-30] MEDS ORDERED: DOXA1TAB34 PO (13:50)
--- NOTE | 2017-06-30 14:53 | HHI.HP ---
HPI Service [facility] Hospitalists Primary Care Physician Ewelina Cisneros MD Admission Diagnosis chest pain Chief Complaint: chest pain Travel History International Travel<30 Days: No Contact w/Intl Traveler <30 Da: No Traveled to Known Affected Are: No History of Present Illness This is an 81-year-old male patient with past medical history which includes atrial fibrillation, arthritis, colon cancer 2004 status post surgical resection and chemotherapy, Melgar's esophagus, GERD, BPH status post TURP, urinary incontinence, hypertension, bilateral hand neuropathy status post chemotherapy, sleep apnea and uses CPAP at home. Patient has had two recent hospitalizations from 05/28/2017 2 06/01/2017 due to strangulated ventral hernia. Patient was then admitted from 06/03/2017 to 2017 for diarrhea with abdominal wound seroma. Patient presents to the emergency department today with complaints of intermittent right-sided chest pain. This chest pain describes as a flutter feeling which occurs at rest lasted for 1-2 mins then resolved spontaneously. Patient denies associated shortness of breath diaphoresis or nausea/vomiting. Patient also denies fevers, chills, congestion, cough, constipation or diarrhea. Review of Systems Respiratory: DENIES: Shortness of breath Cardiovascular: COMPLAINS OF: Chest pain, DENIES: Palpitations, Lower Extremity Edema Gastrointestinal: DENIES: Abdominal pain, Constipation, Diarrhea, Nausea, Vomiting Past Family Social History Past Medical History Atrial fibrillation Rheumatoid arthritis Colon cancer in 2004, s/p chemo and surgical intervention Melgar's esophagus GERD BPH TURP Urinary incontinence HTN bilateral hand neuropathy s/p chemotherapy. sleep apnea, uses CPAP at home Past Surgical History colon resection 2004 bilateral total knee arthroplasty mastoid surgery x 2 TURP tonsillectomy left orchiectomy Reported Medications Potassium Chloride ER (Potassium Chloride) 20 Meq Tab 20 Meq PO DAILY Lasix (Furosemide) 20 Mg Tab 20 Mg PO DAILY Cephalexin 250 Mg Cap 250 Mg PO Q6H Doxazosin (Doxazosin Mesylate) 4 Mg Tab 4 Mg PO DAILY Warfarin 4 Mg Tab 4 Mg PO DAILY Folic Acid 1 Mg Tablet 1 Tab PO DAILY Metoprolol Tartrate 25 Mg Tab 12.5 Mg PO BID Methotrexate 2.5 Mg Tab 10 Mg PO MONDAY Allergies: Coded Allergies: aspirin (Unverified Allergy, Severe, 06/30/17) atropine (Unverified Adverse Reaction, Unknown, SEVERE DIARRHEA, 06/30/17) diphenoxylate (Unverified Adverse Reaction, Unknown, SEVERE DIARRHEA, 06/30) Uncoded Allergies: ANTI INFLAMMATORIES (Allergy, Unknown, 10/13/14) Family History reviewed and found to be noncontributory to his acute illness Social History rare etoh use, denies tob Physical Exam Vital Signs Vital Signs Date Time Temp Pulse Resp B/P (MAP) Pulse Ox O2 Delivery O2 Flow Rate FiO2 06/30/17 12:51 95 Room Air 06/30/17 12:20 97.4 81 18 112/69 (83) 98 Physical Exam GENERAL: This is an elderly 81 year old male patient, in no acute distress SKIN: abdominal wound EYES: Extraocular motions intact. No scleral icterus. No injection or drainage. CARDIOVASCULAR: Regular rate and rhythm RESPIRATORY: Clear to auscultation. Breath sounds equal bilaterally. GASTROINTESTINAL: Abdomen soft, non-tender, nondistended. No hepato-splenomegaly , or palpable masses. No guarding. MUSCULOSKELETAL: Extremities without clubbing, cyanosis, or edema. No joint tenderness, effusion, or edema noted. No calf tenderness. Negative Homans sign bilaterally. NEUROLOGICAL: Awake and alert. No focal deficits noted. Motor and sensory grossly within normal limits. 4-5 out of 5 muscle strength in all muscle groups. Normal speech. Laboratory Laboratory Tests Test 06/30/17 12:45 White Blood Count 5.6 Red Blood Count 3.93 Hemoglobin 11.6 Hematocrit 34.9 Mean Corpuscular Volume 88.8 Mean Corpuscular Hemoglobin 29.5 Mean Corpuscular Hemoglobin Concent 33.2 Red Cell Distribution Width 15.1 Platelet Count 389 Mean Platelet Volume 7.4 Neutrophils (%) (Auto) 56.1 Lymphocytes (%) (Auto) 28.7 Monocytes (%) (Auto) 12.6 Eosinophils (%) (Auto) 1.6 Basophils (%) (Auto) 1.0 Neutrophils # (Auto) 3.1 Lymphocytes # (Auto) 1.6 Monocytes # (Auto) 0.7 Eosinophils # (Auto) 0.1 Basophils # (Auto) 0.1 CBC Comment DIFF FINAL Differential Comment Prothrombin Time 58.6 Prothromb Time International Ratio 5.9 Activated Partial Thromboplast Time 58.5 Blood Urea Nitrogen 9 Creatinine 0.63 Random Glucose 95 Calcium Level 8.7 Sodium Level 137 Potassium Level 4.0 Chloride Level 102 Carbon Dioxide Level 28.2 Anion Gap 7 Estimat Glomerular Filtration Rate 122 Total Creatine Kinase 41 Troponin I LESS THAN 0.02 Result Diagram: 06/30/17 1245 06/30/17 1245 Imaging Last Impressions Chest X-Ray 06/30/17 1235 Signed Impressions: Service Date/Time: Friday, June 30, 2017 13:00 - CONCLUSION: 1. Minimal bibasilar patchiness consistent with atelectasis and/or infiltrates. 2. Cardiomegaly. MD Antony Venegas VTE Risk Assessment Antony VTE Risk Assessment: Mod/High Risk (score >= 2) Caprini Risk Assessment Model Point Value = 1 Point Value = 2 Point Value = 3 Point Value = 5 Age 41-60 Minor surgery BMI > 25 kg/m2 Swollen legs Varicose veins or History of unexplained or recurrent spontaneous Oral contraceptives or hormone replacement Sepsis (< 1 month) Serious lung disease, including pneumonia (< 1 month) Abnormal pulmonary function Acute myocardial infarction Congestive heart failure (< 1 month) History of inflammatory bowel disease Medical patient at bed rest Age 61-74 Arthroscopic surgery Major open surgery (> 45 min) Laparoscopic surgery (> 45 min) Malignancy Confined to bed (> 72 hours) Immobilizing plaster cast Central venous access Age >= 75 History of VTE Family history of VTE Factor V Leiden Prothrombin [id number] Lupus anticoagulant Anticardiolipin antibodies Elevated serum homocysteine Heparin-induced thrombocytopenia Other congenital or acquired thrombophilia Stroke (< 1 month) Elective arthroplasty Hip, pelvis, or leg fracture Acute spinal cord injury (< 1 month) Prophylaxis Regimen Total Risk Factor Score Risk Level Prophylaxis Regimen 0-1 Low Early ambulation 2 Moderate Order ONE of the following: *Sequential Compression Device (SCD) *Heparin 5000 units SQ BID 3-4 Higher Order ONE of the following medications: *Heparin 5000 units SQ TID *Enoxaparin/Lovenox 40 mg SQ daily (WT < 150 kg, CrCl > 30 mL/min) *Enoxaparin/Lovenox 30 mg SQ daily (WT < 150 kg, CrCl > 10-29 mL/min) *Enoxaparin/Lovenox 30 mg SQ BID (WT < 150 kg, CrCl > 30 mL/min) AND/OR *Sequential Compression Device (SCD) 5 or more Highest Order ONE of the following medications: *Heparin 5000 units SQ TID (Preferred with Epidurals) *Enoxaparin/Lovenox 40 mg SQ daily (WT < 150 kg, CrCl > 30 mL/min) *Enoxaparin/Lovenox 30 mg SQ daily (WT < 150 kg, CrCl > 10-29 mL/min) *Enoxaparin/Lovenox 30 mg SQ BID (WT < 150 kg, CrCl > 30 mL/min) AND *Sequential Compression Device (SCD) Assessment and Plan Problem List: (1) Chest pain at rest ICD Codes: R07.9 - Chest pain, unspecified Status: Acute Plan: Patient with right-sided chest pain at rest which lasted for a few minutes. With no associated shortness of breath, diaphoresis or nausea Initial troponin less than 0.02, serial troponin Serial EKGs Holter monitor Orthostatic vital signs requested MARBELLA richmond Patient also c/o generalized weakness since the surgery in May. Explained to patient and that his decreased energy may be the normal healing process PT consulted Discussed the option of rehab/SNF placement at time of DC patient and refuse. (2) Coumadin toxicity ICD Codes: T45.511A - Poisoning by anticoagulants, accidental (unintentional), initial encounter Plan: Patient had supratherapeutic INR 5.9 on admission No signs or symptoms of active bleeding Hold Coumadin at this time Daily INR (3) A-fib ICD Codes: I48.91 - Unspecified atrial fibrillation Plan: rate currently controlled continue home metoprolol 12.5 mg PO BID INR supra therapeutic at 5.9 hold Coumadin recheck in AM (4) BPH (benign prostatic hyperplasia) ICD Codes: N40.0 - Benign prostatic hyperplasia without lower urinary tract symptoms Plan: Continue patient's home Doxazosin 4 mg by mouth daily (5) Open abdominal wall wound ICD Codes: S31.109A - Unspecified open wound of abdominal wall, unspecified quadrant without penetration into peritoneal cavity, initial encounter Plan: wound looks clean, no ss of infection continue dry sterile dressing changes BID Assessment and Plan Patient examined. Assessment and plan formulated with Alexandrea Disla PA-C. I agree with the above. Alexandrea Disla Jun 30, 2017 14:53 Ranjit Manuel DO Jul 04, 2017 20:59
[2017-06-30] MEDS ORDERED: NITROGLYCERIN 0.4 MG SL 25 TABS/BTL SL PRN (15:00)
[2017-06-30] MEDS ORDERED: NALOXONE HCL 0.4 MG/ML AMP IV PUSH PRN (15:00)
[2017-06-30] MEDS ORDERED: ONDANSETRON HCL 4 MG/2 ML VIAL IVP PRN (15:00)
[2017-06-30] MEDS ORDERED: ACETAMINOPHEN 325 MG TAB PO PRN (15:00)
[2017-06-30] MEDS ORDERED: SODIUM CHLORIDE 0.9% FLUSH 10 ML FLUSH IV FLUSH PRN (15:00)
[2017-06-30] MEDS ORDERED: MAGNESIUM HYDROXIDE SUSP 30 ML CUP PO PRN (15:00)
[2017-06-30] MEDS ORDERED: PILL SPLITTER OTHER PRN (16:15)
[2017-06-30] MEDS: CEPHALEXIN MONOHYDRATE 250 MG CAP PO SCH ×2 (18:11→23:53)
[2017-06-30] MEDS: METOPROLOL TARTRATE 25 MG TAB PO SCH (20:57)
[2017-06-30] MEDS: SODIUM CHLORIDE 0.9% FLUSH 10 ML FLUSH IV FLUSH SCH (20:57)
[2017-06-30 21:04] LABS: MAGNESIUM 2.1 MG/DL (1.5-2.5)
[2017-06-30 21:06] LABS: TROPONIN I LESS THAN 0.02 NG/ML (0.02-0.05)
[2017-07-01 03:50] VITALS: BP 119/73; PULSE 88; RESP 18; TEMP 98.1; O2SAT 94
[2017-07-01 04:13] LABS: AUTOMATED NEUTROPHIL # 3.9 TH/MM3 (1.8-7.7); BASOPHIL # 0.1 TH/MM3 (0-0.2); BASOPHIL % 1.1 % (0.0-2.0); EOSINOPHIL # 0.2 TH/MM3 (0-0.4); EOSINOPHIL % 2.4 % (0.0-4.0); HEMATOCRIT 32.5 % (39.0-51.0); LYMPH % 27.2 % (9.0-44.0); LYMPHOCYTE # 1.8 TH/MM3 (1.0-4.8); MEAN CELL VOLUME 88.2 FL (80.0-100.0); MEAN CORPUSCULAR HEMOGLOBIN 29.9 PG (27.0-34.0); MEAN CORPUSCULAR HGB CONC 33.9 % (32.0-36.0); MEAN PLATELET VOLUME 7.3 FL (7.0-11.0); MONO % 10.1 % (0.0-8.0); MONOCYTE # 0.7 TH/MM3 (0-0.9); NEUT % 59.2 % (16.0-70.0); PLATELET COUNT 381 TH/MM3 (150-450); RED BLOOD COUNT 3.69 MIL/MM3 (4.50-5.90); WHITE BLOOD COUNT 6.6 TH/MM3 (4.0-11.0)
[2017-07-01 04:36] LABS: INTERNATIONAL NORMALIZED RATIO 5.4 RATIO; PROTHROMBIN TIME - PATIENT 54.1 SEC (9.8-11.6)
[2017-07-01 04:38] LABS: BICARBONATE 24.1 MEQ/L (21.0-32.0); CREATININE 0.59 MG/DL (0.60-1.30)
[2017-07-01 04:44] LABS: CHOLESTEROL/ HDL RATIO 2.68 RATIO; HDL CHOLESTEROL 33.5 MG/DL (40.0-60.0)
[2017-07-01 04:45] LABS: TROPONIN I LESS THAN 0.02 NG/ML (0.02-0.05)
[2017-07-01] MEDS: CEPHALEXIN MONOHYDRATE 250 MG CAP PO SCH ×2 (05:51→12:29)
[2017-07-01 08:03] VITALS: BP_SYST 130; BP_SYST 135; BP_DIAS 72; BP_DIAS 74; PULSE 68; RESP 20; TEMP 98.2; O2SAT 96
[2017-07-01 08:14] VITALS: PULSE 90
[2017-07-01] MEDS: SODIUM CHLORIDE 0.9% FLUSH 10 ML FLUSH IV FLUSH SCH (08:53)
[2017-07-01] MEDS: METOPROLOL TARTRATE 25 MG TAB PO SCH (08:54)
[2017-07-01] MEDS ORDERED: DOXAZOSIN MESYLATE 4 MG TAB PO SCH (09:00)
--- NOTE | 2017-07-01 09:24 | HHI.DCPOC ---
Discharge Care Plan Diagnosis: (1) Chest pain at rest (2) Delayed surgical wound healing Goals to Promote Your Health * To prevent worsening of your condition and complications * To maintain your health at the optimal level Directions to Meet Your Goals Take your medications as prescribed Follow your dietary instruction Follow activity as directed Keep your appointments as scheduled Take your immunizations and boosters as scheduled If your symptoms worsen call your PCP, if no PCP go to Urgent Care Center or Emergency Room Smoking is Dangerous to Your Health. Avoid second hand smoke Call the 24-hour hour crisis hotline for domestic abuse at Alexandrea Disla Jul 01, 2017 09:24 Ranjit Manuel DO Jul 04, 2017 20:59
--- NOTE | 2017-07-01 09:25 | HHI.FF ---
Face to Face Verification Diagnosis: (1) Chest pain at rest (2) Delayed surgical wound healing Physical Therapy Order: Evaluate and Treat Occupational Therapy Order: Evaluate and Treat Home Health Nursing Order: Medical education Signs/symptoms of disease process Nursing assessment with vital signs Instructions: please draw INR Monday with results to PCP Dr. Cisneros Pharmacy Picking Technician Order: To Evaluate: Support services Order: To Provide: Community services I have seen patient Jailene James on 07/01/17. My clinical findings support the need for the requested home health care services because: Ltd mobility - disease progression Deconditioned w/ increased weakness Limited ability to care for self I certify that my clinical findings support that this patient is homebound because: Unsteady gait/balance Alexandrea Disla Jul 01, 2017 09:25 Ranjit Manuel DO Jul 01, 2017 09:47
--- NOTE | 2017-07-01 09:51 | HHI.PR ---
Subjective Remarks No new complaints Now CP today Objective Vitals Vital Signs Date Time Temp Pulse Resp B/P (MAP) Pulse Ox O2 Delivery O2 Flow Rate FiO2 07/01/17 08:03 98.2 68 20 135/72 (93) 96 130/74 (92) 07/01/17 03:50 98.1 88 18 119/73 (88) 94 06/30/17 23:54 98.8 81 18 121/71 (88) 96 06/30/17 21:35 98.5 85 18 111/62 (78) 96 116/65 (82) 113/56 (75) 06/30/17 20:00 96 06/30/17 17:06 99 06/30/17 16:43 98.6 93 18 125/72 (89) 97 06/30/17 16:36 06/30/17 16:00 88 18 113/69 (84) 97 Room Air 06/30/17 12:51 95 Room Air 06/30/17 12:20 97.4 81 18 112/69 (83) 98 Result Diagram: 07/01/17 0356 07/01/17 0356 Other Results Laboratory Tests Test 06/30/17 12:45 06/30/17 20:19 07/01/17 03:56 White Blood Count 5.6 TH/MM3 6.6 TH/MM3 Red Blood Count 3.93 MIL/MM3 3.69 MIL/MM3 Hemoglobin 11.6 GM/DL 11.0 GM/DL Hematocrit 34.9 % 32.5 % Mean Corpuscular Volume 88.8 FL 88.2 FL Mean Corpuscular Hemoglobin 29.5 PG 29.9 PG Mean Corpuscular Hemoglobin Concent 33.2 % 33.9 % Red Cell Distribution Width 15.1 % 15.0 % Platelet Count 389 TH/MM3 381 TH/MM3 Mean Platelet Volume 7.4 FL 7.3 FL Neutrophils (%) (Auto) 56.1 % 59.2 % Lymphocytes (%) (Auto) 28.7 % 27.2 % Monocytes (%) (Auto) 12.6 % 10.1 % Eosinophils (%) (Auto) 1.6 % 2.4 % Basophils (%) (Auto) 1.0 % 1.1 % Neutrophils # (Auto) 3.1 TH/MM3 3.9 TH/MM3 Lymphocytes # (Auto) 1.6 TH/MM3 1.8 TH/MM3 Monocytes # (Auto) 0.7 TH/MM3 0.7 TH/MM3 Eosinophils # (Auto) 0.1 TH/MM3 0.2 TH/MM3 Basophils # (Auto) 0.1 TH/MM3 0.1 TH/MM3 CBC Comment DIFF FINAL DIFF FINAL Differential Comment Prothrombin Time 58.6 SEC 54.1 SEC Prothromb Time International Ratio 5.9 RATIO 5.4 RATIO Activated Partial Thromboplast Time 58.5 SEC Blood Urea Nitrogen 9 MG/DL 9 MG/DL Creatinine 0.63 MG/DL 0.59 MG/DL Random Glucose 95 MG/DL 103 MG/DL Calcium Level 8.7 MG/DL 8.0 MG/DL Sodium Level 137 MEQ/L 138 MEQ/L Potassium Level 4.0 MEQ/L 3.9 MEQ/L Chloride Level 102 MEQ/L 104 MEQ/L Carbon Dioxide Level 28.2 MEQ/L 24.1 MEQ/L Anion Gap 7 MEQ/L 10 MEQ/L Estimat Glomerular Filtration Rate 122 ML/MIN 132 ML/MIN Total Creatine Kinase 41 U/L 33 U/L 30 U/L Troponin I LESS THAN 0.02 NG/ML LESS THAN 0.02 NG/ML LESS THAN 0.02 NG/ML Magnesium Level 2.1 MG/DL Triglycerides Level 69 MG/DL Cholesterol Level 90 MG/DL LDL Cholesterol 43 MG/DL HDL Cholesterol 33.5 MG/DL Cholesterol/HDL Ratio 2.68 RATIO Imaging Last Impressions Chest X-Ray 06/30/17 1235 Signed Impressions: Service Date/Time: Friday, June 30, 2017 13:00 - CONCLUSION: 1. Minimal bibasilar patchiness consistent with atelectasis and/or infiltrates. 2. Cardiomegaly. Thong Javed MD Objective Remarks GENERAL: This is an elderly 81 year old male patient, in no apparent distress. CARDIOVASCULAR: irregularly irregular RESPIRATORY: Clear to auscultation. Breath sounds equal bilaterally. GASTROINTESTINAL: Abdomen soft, non-tender, nondistended. Normal active bowel sounds MUSCULOSKELETAL: Extremities without clubbing, cyanosis, or edema. NEURO: Awake and alert. Moves all ext x4 Procedures none A/P Problem List: (1) Chest pain at rest ICD Codes: R07.9 - Chest pain, unspecified Status: Acute Plan: Patient with right-sided chest pain at rest which lasted for a few minutes. With no associated shortness of breath, diaphoresis or nausea serial troponin < 0.02 x3 Serial EKGs showed no acute ST changes Holter monitor requested Orthostatic vital signs reviewed and negative for orthostatic hypotension MARBELLA luciano requested Patient offered nuclear stress test including risk and benefits. Patient and do not want stress test at this time. Patient to follow up with outpatient cardiology Dr. Mcnitosh Patient also c/o generalized weakness since the surgery in May. Explained to patient and that his decreased energy may be the normal healing process PT consulted Discussed the option of rehab/SNF placement at time of DC patient and refuse. (2) Coumadin toxicity ICD Codes: T45.511A - Poisoning by anticoagulants, accidental (unintentional), initial encounter Plan: Patient had supratherapeutic INR 5.9 on admission -> (07/01) 5.4 No signs or symptoms of active bleeding Hold Coumadin at this time Home healthcare requested at DC. INR ordered for Monday with results to PCP discussed with patient and his the possibility of changing to a novel anticoagulant such as Xarelto or Eliquis. Patient and will discuss this with Dr. Cisneros at their next appointment. (3) A-fib ICD Codes: I48.91 - Unspecified atrial fibrillation Plan: rate currently controlled continue home metoprolol 12.5 mg PO BID INR supra therapeutic at 5.9 hold Coumadin recheck -> (07/01) 5.4 discussed with patient and his the possibility of changing to a novel anticoagulant such as Xarelto or Eliquis. Patient and will discuss this with Dr. Cisneros at their next appointment. 07/01: In review of telemetry overnight, patient has had some rapid A Fib rhythms will add digoxin 0.25 mg IV x 1 in hospital then DC on digoxin 0.125 mg PO daily at discharge patient to follow up with outpatient cardiology Dr. Mcintosh (4) BPH (benign prostatic hyperplasia) ICD Codes: N40.0 - Benign prostatic hyperplasia without lower urinary tract symptoms Plan: Continue patient's home Doxazosin 4 mg by mouth daily (5) Open abdominal wall wound ICD Codes: S31.109A - Unspecified open wound of abdominal wall, unspecified quadrant without penetration into peritoneal cavity, initial encounter Plan: wound looks clean, no ss of infection continue dressing changes Assessment and Plan Patient examined. Assessment and plan formulated with Alexandrea Disla PA-C. I agree with the above. Alexandrea Disla Jul 01, 2017 09:51 Ranjit Manuel DO Jul 04, 2017 20:58
[2017-07-01] MEDS ORDERED: DIGO0.12 PO (10:16)
[2017-07-01] MEDS ORDERED: DIGOXIN 0.25 MG TAB PO ONE (10:30)
[2017-07-01] MEDS ORDERED: DIGOXIN 0.5 MG/2 ML VIAL IV PUSH ONE (10:30)
--- NOTE | 2017-07-01 12:12 | RADRPT ---
EXAM DATE/TIME: 07/01/2017 11:39 [facility] COMPARISON: No previous studies available for comparison. INDICATIONS : Abdominal Pain MEDICAL HISTORY : Congestive heart failure. Cardiovascular disease. Gastroesophageal reflux disease. Carcinoma, colon. SURGICAL HISTORY : Colon resection. ENCOUNTER: Initial ACUITY: 1 day PAIN SCORE: 4/10 LOCATION: Abdomen FINDINGS: Supine and upright views the abdomen demonstrates presence of a small air-fluid level within a hiatal hernia. The lung bases are otherwise clear. Heart size is mildly enlarged. There is a nonobstructive bowel gas pattern present without abnormal soft tissue. There are air-fluid levels identified within the small bowel of the left upper quadrant without abnormal bowel dilation. The osseous structures d emonstrate diffuse osteopenia and multilevel degenerative changes of the lumbar spine. Dextroscoliosi s. CONCLUSION: Air-fluid levels identified within nondilated small bowel loops within the left mid abdomen may refle ct an adjacent inflammatory process. Recommend further evaluation with contrast-enhanced CT the abdom en to evaluate for primary source. This may reflect pancreatitis.. Tsering Poole MD on July 01, 2017 at 12:08 Board Certified Radiologist. This report was verified electronically.
--- NOTE | 2017-07-01 17:45 | EKG ---
Date Performed: 06/30/2017 Time Performed: 12:42:00 PTAGE: 81 years EKG: ATRIAL FIBRILLATION RIGHT BUNDLE BRANCH BLOCK LEFT ANTERIOR FASCICULAR BLOCK ABNORMAL ECG S aaron PREVIOUS TRACING , no significant change noted PREVIOUS TRACIN05/28/2017 07.13 DOCTOR: Prakash Marroquin Interpretating Date/Time 07/01/2017 17:43:44
--- NOTE | 2017-07-03 21:45 | HM ---
Date Performed: 07/01/2017 Time Performed: 12:02:00 HOOKUP DATE: 07/01/17 12:02:00 PM Sat ANALYSIS START TIME: 07/01/2017 12:07:00 PM ANALYSIS END TIME: 07/02/2017 11:10:18 AM PATIENT AGE: 81 PATIENT HEIGHT PATIENT WEIGHT DRUG LIST PATIENT DIAGNOSIS: chest pain TEST NARRATIVE: The patient's average heart rate was 94 BPM. Heart rates greater than 120 B PM were noted 16% of the time. No episodes of bradycardia were noted. No pauses exceeding 2.0 se conds were noted. 1245 ventricular ectopics, which represented 1% of the total beat count, were n oted. The highest ventricular ectopic frequency occurred from 05:00 PM to 06:00 PM Sat. During this time 119 VE(s) occurred. Ventricular ectopics were observed as 1175 isolated beat(s), as 32 couplet (s) and as 2 run(s). Some of the ventricular beats occurred in bigeminal cycles. No supraventric ular ectopics were noted. Multiple episodes of ST depression (defined as -1.0 mm or more) were n oted in channel 1. The maximum depression of -3.3 mm occurred at 10:55:06 PM Sat. Multiple episodes of ST depression (defined as -1.0 mm or more) were noted in channel 2. The maximum depression of - 4.0 mm occurred at 02:52:00 PM Sat. Multiple episodes of ST depression (defined as -1.0 mm or more) were noted in channel 3. The maximum depression of -4.1 mm occurred at 12:17:45 PM Sat. TEST INTERPRETATION: 24 Hour Holter Monitor-Dr. Christian Patient does appear to be in an irrr egular rhythm, throughout the study, most consistant with atrial fibrillation. Therer is multiple ep isodes of rapid ventricular rate up to 170 beats per minute. Multiple episodes of wide complex tachy cardia, consistant with NSVT verses atrial fibrillation with abberancy. There are no pauses apprecia hyacinth. There was no diary provided or complaints. Signed by : Idalia Christian
[2017-07-07] MEDS ORDERED: METHOTREXATE 2.5 MG TAB PO SCH (08:00)
== END 2017-07-01 14:11 | disposition home or self-care (01) ==
LOC: NEPC 12:15 → NEDA 14:53 → NEPFCDU 16:44
PROVIDERS: ADMIT Hospitalist; ATTEND Hospitalist
DX: R07.89 Other chest pain (principal); R53.1 Weakness; T45.511A Poisoning by anticoagulants, accidental (unintentional), initial encounter; S31.109A Unspecified open wound of abdominal wall, unspecified quadrant without penetration into peritoneal cavity, initial encounter; R79.1 Abnormal coagulation profile; I11.0 Hypertensive heart disease with heart failure; I50.9 Heart failure, unspecified; I45.2 Bifascicular block; R94.31 Abnormal electrocardiogram [ECG] [EKG]; I48.91 Unspecified atrial fibrillation; E11.40 Type 2 diabetes mellitus with diabetic neuropathy, unspecified; G47.30 Sleep apnea, unspecified; K21.9 Gastro-esophageal reflux disease without esophagitis; N40.1 Benign prostatic hyperplasia with lower urinary tract symptoms; R32 Unspecified urinary incontinence; M06.9 Rheumatoid arthritis, unspecified; M17.11 Unilateral primary osteoarthritis, right knee; Z85.038 Personal history of other malignant neoplasm of large intestine; Z92.21 Personal history of antineoplastic chemotherapy; Z79.01 Long term (current) use of anticoagulants; Z79.899 Other long term (current) drug therapy; X58.XXXA Exposure to other specified factors, initial encounter
CPT/HCPCS: 71045; 74019; 80048; 80061; 82550; 83735; 84484; 85025; 85610; 85730; 93005; 93225; 93226; 96374; 97162; 99285; G0378; G8987; G8988; J1160